=== PATIENT | female | born 1945 | race Caucasian/White ===

== ENCOUNTER 2020-10-26 16:17 | Inpatient (IN) | payer MEDICARE, OTHER ==
[~2020-10-26] VITALS: Ht 167.6 cm; Wt 121.4 kg
[2020-10-26] MEDS ORDERED: IV NORMAL SALINE 1000ML BAG 1,000 ML IV ONE ×2 (16:30→19:00)
[2020-10-26] MEDS ORDERED: IV NORMAL SALINE 500ML BAG 500 ML IV PRN (16:30)
--- NOTE | 2020-10-26 16:40 | ED.ADGEN ---
General Adult HPI: HPI: Patient is a 75-year-old female who arrives via EMS in transfer for dialysis as well as ongoing treatment for sepsis. Patient was transferred from outlying facility for direct admission to the hospital. It was reported by paramedics to the accepting doctor the patient was hypotensive and the accepting physician contacted myself and asked the patient be evaluated in the emergency department. Upon arrival it is been reported to myself the patient's blood pressure has been extremely low and the patient has been altered. I am not certain as to how long this has been ongoing. Moreover paramedics report to me the patient was transferred here specifically for dialysis however they are unaware when the patient last received dialysis. The patient is incapacitated at this time and unable to provide history. Review of Systems: Review of Systems: Unable to obtain Current Medications: Current Medications Medications (Trade) Dose Ordered Sig/Bennie Start Time Stop Time Status Last Admin Dose Admin Dobutamine HCl/ Dextrose 250 ml @ 0 mls/hr CONT PRN 10/26/20 16:30 Norepinephrine Bitartrate 8 mg/ Dextrose 258 ml @ 0 mls/hr CONT PRN 10/26/20 16:30 10/26/20 16:52 21 MLS/HR Ondansetron HCl (Zofran) 4 mg PRN Q8HRS PRN 10/26/20 17:30 10/27/20 17:29 Piperacillin Sod/ Tazobactam Sod (Zosyn Per Pharmacy) 1 each PRN DAILY PRN 10/26/20 18:30 UNV Sodium Chloride 1,000 ml @ 1,000 mls/hr 1X ONCE 10/26/20 16:30 10/26/20 17:29 DC 10/26/20 16:43 1,000 MLS/HR Vancomycin HCl (Vanco Per Pharmacy) 1 each PRN DAILY PRN 10/26/20 18:30 UNV Allergies: Allergies: Allergies Coded Allergies Type Severity Reaction Last Updated Verified Penicillins Allergy Intermediate 10/26/20 Yes chlorpheniramine Allergy Intermediate AKYLAMINE ANTIHISTAMINE 10/26/20 Yes ciprofloxacin Allergy Intermediate 10/26/20 Yes codeine Allergy Intermediate 10/26/20 Yes pioglitazone Allergy Intermediate 10/26/20 Yes ramipril Allergy Intermediate 10/26/20 Yes Physical Exam: PE: Constitutional: Morbidly obese, ill-appearing/toxic. Well developed, well nourished. [] HENT: Normocephalic, atraumatic, bilateral external ears normal, oropharynx moist, no oral exudates, nose normal. [] Eyes: PERRLA, EOMI, conjunctiva normal, no discharge. [] Neck: Normal range of motion, no tenderness, supple, no stridor. [] Cardiovascular:Heart rate regular rhythm, no murmur [] Lungs & Thorax: Breath sounds are diminished bilaterally. [] Abdomen: Bowel sounds normal, soft, no tenderness, no masses, no pulsatile masses. [] Skin: Warm, dry, no erythema, no rash. [] Back: No tenderness, no CVA tenderness. [] Extremities: Cool extremities. No tenderness, no cyanosis, no clubbing, ROM intact, no edema. [] Neurologic: Patient is arousable with physical prompting. She does move all 4 extremities when prompted. [] Psychologic: Unable to assess. [] Current Patient Data: Labs: Laboratory Tests Test 10/26/20 16:30 Lactic Acid Level 2.4 mmol/L (0.4-2.0) H Total Bilirubin 0.3 mg/dL (0.2-1.0) Direct Bilirubin 0.1 mg/dL (0.0-0.2) Aspartate Amino Transferase (AST) 407 U/L (15-37) H Alanine Aminotransferase (ALT) 229 U/L (14-59) H Alkaline Phosphatase 175 U/L (46-116) H Troponin I Quantitative 0.061 ng/mL (0.000-0.055) Total Protein 5.3 g/dL (6.4-8.2) L Albumin 1.7 g/dL (3.4-5.0) L Procalcitonin 1.46 ng/mL (0.00-0.10) H Vital Signs: Vital Signs Date Time Temp Pulse Resp B/P (MAP) Pulse Ox O2 Delivery O2 Flow Rate FiO2 10/26/20 17:20 60 16 99 Venturi Mask 9.0 10/26/20 17:10 91/44 (60) 10/26/20 16:17 97.4 97.4 EKG: EKG: [] EKG was obtained at 1632 hrs. and revealed a bradycardic rhythm with a ventricular rate of 58 bpm. There is left axis deviation present. 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 There are no acute ST/T wave changes present otherwise. Heart Score: C/O Chest Pain: N/A Risk Factors: Risk Factors: DM, Current or recent (<one month) smoker, HTN, HLP, family history of CAD, obesity. Risk Scores: Score 0 - 3: 2.5% MACE over next 6 weeks - Discharge Home Score 4 - 6: 20.3% MACE over next 6 weeks - Admit for Clinical Observation Score 7 - 10: 72.7% MACE over next 6 weeks - Early Invasive Strategies Radiology/Procedures: Radiology/Procedures: [] Impression: [facility] [address] [place], [place] [id number] IMAGING REPORT Signed PATIENT: EVELINE ARMSTRONG EACCOUNT: [id number] : 1945 LOCATION: ER AGE: 75 SEX: F EXAM STATUS: REG ER ORD. PHYSICIAN: ELLY CORDON DO REASON: Altered mental status PROCEDURE: CHEST AP ONLY XR CHEST 1V History: Altered mental status. Comparison: None. Technique: AP radiograph of the chest. Findings: Rotated patient positioning. Hypoinflated lungs. Bibasilar opacities. No significant pleural effusion. Cardiac silhouette is normal in size. Unremarkable pulmonary vasculature. No acute osseous abnormality identified. Soft tissues are unremarkable. Impression: 1. Hypoinflation with bibasilar opacities which may represent atelectasis. Cannot exclude superimposed infection. Electronically signed by: Yohan Denton MD (10/26/2020 5:17 PM) [facility] DICTATED and SIGNED BY: YOHAN DENTON MD DATE: 10/26/20 [id number] 0 Course & Med Decision Making: Course & Med Decision Making Pertinent Labs and Imaging studies reviewed. (See chart for details) [] Dragon Disclaimer: Viral Disclaimer: This electronic medical record was generated, in whole or in part, using a voice recognition dictation system. Departure Departure Impression: Primary Impression: Septic shock Additional Impressions: Multiorgan failure Altered mental state History of cellulitis Disposition: ADMITTED INPATIENT Admitting Physician: BHASKAR Condition: GUARDED Referrals: GARY REYNOSO DO (PCP) Date and Time of Reassessment Date: Oct 26, 2020 Time: 18:36 Fluid Challenge Is the fluid challenge complet: Yes IBW Target Volume Used: No BMI > 30: Yes Vital Signs Vital Signs: Vital Signs Date Time Temp Pulse Resp B/P (MAP) Pulse Ox O2 Delivery O2 Flow Rate FiO2 10/26/20 17:20 60 16 99 Venturi Mask 9.0 10/26/20 17:10 91/44 (60) 10/26/20 16:17 97.4 97.4 Temperature Source: Axillary Respirations Respiratory Pattern: Normal Cardiovascular Pulse Rhythm: Regular Heart: Nml rate, reg. rhythm Lung Sounds Breath Sounds: Diminished Capillary Refil Capillary Refill: Lt Hand < 3 seconds Peripheral Pulse Pulse Location: Radial Pulse Strength: Normal (2+) Pulse Assessment Method: Palpation Integumentary Skin: Warm, Dry Skin Moisture: Clammy Skin Turgor: Decreased Skin Color: warm, edema Fingernail Color: WNL Critical Care Time Critical care time was 30 minutes exclusive of procedures. Problem Qualifiers ELLY CORDON DO Oct 26, 2020 16:40
[2020-10-26] MEDS: NOREPINEPHRINE VIAL 8 MG in IV DEXTROSE 5% 250 ML IV PRN (16:52)
[2020-10-26 16:58] LABS: ALBUMIN 1.7 g/dL (3.4-5.0); DIRECT BILIRUBIN 0.1 mg/dL (0.0-0.2); TOTAL BILIRUBIN 0.3 mg/dL (0.2-1.0); TOTAL PROTEIN 5.3 g/dL (6.4-8.2)
--- NOTE | 2020-10-26 17:20 | RAD ---
XR CHEST 1V History: Altered mental status. Comparison: None. Technique: AP radiograph of the chest. Findings: Rotated patient positioning. Hypoinflated lungs. Bibasilar opacities. No significant pleural effusion . Cardiac silhouette is normal in size. Unremarkable pulmonary vasculature. No acute osseous abnormal ity identified. Soft tissues are unremarkable. Impression: 1. Hypoinflation with bibasilar opacities which may represent atelectasis. Cannot exclude superimpos ed infection. Electronically signed by: Yohan Young MD (10/26/2020 5:17 PM) [facility]
[2020-10-26] MEDS ORDERED: ONDANSETRON PF 4 MG/2 ML VIAL. IV PRN (17:30)
--- NOTE | 2020-10-26 18:28 | PDOC1 ---
History and Physical Date of Admission Date of Admission DATE: 10/26/20 TIME: 18:27 Identification/Chief Complaint Chief Complaint sepsis Source Source: Chart review, Patient History of Present Illness History of Present Illness Ms. Mae is a 75-year-old female who arrives via EMS in transfer for dialysis as well as ongoing treatment for sepsis. PT arrived hypotensive, shock, obtuneded, confused. I reviewed all notes and discussed with her at [facility]. She injured her leg 20 days ago, and refused to seek medical care thinking it would improve. She was admitted to [facility] 8 days ago, and started on clinda. Pt has CKD 4, prior HD here 8 years ago, Dr. Barraza. Transfer for sepsis , worseing renal function, cr 2.2 on admit, worse to 6.4 toady, with also increases in BUN over that time. she has surg I+D on her left leg yesterday 10/25 and 4 mm incision done to drain abcess, area is now wrapped. It was reported by paramedics to the accepting doctor the patient was hypotensive and the accepting physician contacted myself and asked the patient be evaluated in the emergency department. Upon arrival it is been reported to myself the patient's blood pressure has been extremely low and the patient has been altered. Past Medical History Cardiovascular: HTN Musculoskeletal: low back pain, Osteoarthritis Renal/: Chronic renal failure Endocrine: Diabetes Family History Family History: Coronary Artery Disease, Diabetes Social History Smoke: Quit ALCOHOL: none Drugs: None Current Medications Current Medications Current Medications Sodium Chloride 500 ml @ 1,000 mls/hr PRN Q30MIN PRN IV SEE COMMENTS; Start 10/26/20 at 16:30 Norepinephrine Bitartrate 8 mg/ Dextrose 258 ml @ 0 mls/hr CONT PRN IV SEE I/O RECORD Last administered on 10/26/20at 16:52; Start 10/26/20 at 16:30 Dobutamine HCl/ Dextrose 250 ml @ 0 mls/hr CONT PRN IV SEE I/O RECORD; Start 10/26/20 at 16:30 Sodium Chloride 1,000 ml @ 1,000 mls/hr 1X ONCE IV Last administered on 10/26/20at 16:43; Start 10/26/20 at 16:30; Stop 10/26/20 at 17:29; Status DC Ondansetron HCl (Zofran) 4 mg PRN Q8HRS PRN IV NAUSEA/VOMITING; Start 10/26/20 at 17:30; Stop 10/27/20 at 17:29 Allergies Allergies: Coded Allergies: Penicillins (Verified Allergy, Intermediate, 10/26/20) chlorpheniramine (Verified Allergy, Intermediate, AKYLAMINE ANTIHISTAMINE, 10/26/20) ciprofloxacin (Verified Allergy, Intermediate, 10/26/20) codeine (Verified Allergy, Intermediate, 10/26/20) pioglitazone (Verified Allergy, Intermediate, 10/26/20) ramipril (Verified Allergy, Intermediate, 10/26/20) ROS Review of System unable, pt obtunded, hx per , when awake she is not coherent Physical Exam Physical Exam obtunded on arrival, then yelling out when BP better General: moderate distress, severe distress, Other (confused, ) HEENT: Atraumatic Lungs: Clear to auscultation Heart: S1S2, no murmurs Abdomen: Normal bowel sounds, Soft (very obese, brusing, ) Rectal Exam: deferred Extremities: No clubbing, No cyanosis, Other (1+ edema, ) Skin: Other (left leg with wound, wrapped, with some red ness, ) Psych/Mental Status: Other (confused, deliriuous) Vitals Vitals Vital Signs Date Time Temp Pulse Resp B/P (MAP) Pulse Ox O2 Delivery O2 Flow Rate FiO2 10/26/20 17:20 60 16 99 Venturi Mask 9.0 10/26/20 17:10 91/44 (60) 10/26/20 16:17 97.4 97.4 Labs Labs Laboratory Tests Test 10/26/20 16:30 Lactic Acid Level 2.4 mmol/L (0.4-2.0) Total Bilirubin 0.3 mg/dL (0.2-1.0) Direct Bilirubin 0.1 mg/dL (0.0-0.2) Aspartate Amino Transf (AST/SGOT) 407 U/L (15-37) Alanine Aminotransferase (ALT/SGPT) 229 U/L (14-59) Alkaline Phosphatase 175 U/L (46-116) Troponin I Quantitative 0.061 ng/mL (0.000-0.055) Total Protein 5.3 g/dL (6.4-8.2) Albumin 1.7 g/dL (3.4-5.0) Procalcitonin 1.46 ng/mL (0.00-0.10) Laboratory Tests Test 10/26/20 16:30 Lactic Acid Level 2.4 mmol/L (0.4-2.0) Total Bilirubin 0.3 mg/dL (0.2-1.0) Direct Bilirubin 0.1 mg/dL (0.0-0.2) Aspartate Amino Transf (AST/SGOT) 407 U/L (15-37) Alanine Aminotransferase (ALT/SGPT) 229 U/L (14-59) Alkaline Phosphatase 175 U/L (46-116) Troponin I Quantitative 0.061 ng/mL (0.000-0.055) Total Protein 5.3 g/dL (6.4-8.2) Albumin 1.7 g/dL (3.4-5.0) Procalcitonin 1.46 ng/mL (0.00-0.10) VTE Prophylaxis Ordered VTE Prophylaxis Devices: No VTE Pharmacological Prophylaxi: Yes Assessment/Plan Assessment/Plan sepsis, septic shock, IV fluid and dopamine given in route, change to levaphed, fluid given sepsis, cellulitis, Vanc,zosyn ordere acute renal failure, vasomotor on CKD 4, consult renal, hx of prior dialysis yearss ago obese, BMI 40 dm2 neuropathy feet, poor sensation acute transaminitis from sepsis Justifications for Admission Other Justification ISHAN ADLER MD Oct 26, 2020 18:27
[2020-10-26] MEDS ORDERED: PIP/TAZO PER PHARMACY MC PRN (18:30)
[2020-10-26] MEDS ORDERED: VANCOMYCIN 2 GM in IV NORMAL SALINE 500ML BAG 500 ML IV ONE (19:00)
[2020-10-26 19:13] LABS: ISTAT BE VENOUS -16 mmol/L (0-3); ISTAT HCO3 VEN 14 mmol/L (24-28); ISTAT PCO2 VEN 49 mmHg (41-51); ISTAT PH VEN 7.07 (7.32-7.42); ISTAT PO2 VEN 226 mmHg (20-40); ISTAT SAT O2 VEN 99 %; ISTAT TCO2 VEN 16 mmol/L (21-32)
[2020-10-26 19:55] LABS: BASO # 0.1 x10^3/uL (0.0-0.2); BASO % 1 % (0-3); EOS # 0.2 x10^3/uL (0.0-0.7); EOS % 1 % (0-3); HEMATOCRIT 26.7 % (36.0-47.0); HEMOGLOBIN 8.5 g/dL (12.0-15.5); LYMPH # 0.5 x10^3/uL (1.0-4.8); LYMPH % 3 % (24-48); MEAN CORPUSCULAR HEMOGLOBIN 31 pg (25-35); MEAN CORPUSCULAR HGB CONC 32 g/dL (31-37); MEAN CORPUSCULAR VOLUME 96 fL (79-100); MONO # 0.7 x10^3/uL (0.0-1.1); MONO % 3 % (0-9); NEUT # 18.7 x10^3/uL (1.8-7.7); NEUT % 92 % (31-73); PLATELET COUNT 270 x10^3/uL (140-400); RED CELL DISTRIBUTION WIDTH 14.2 % (11.5-14.5); WHITE BLOOD COUNT 20.2 x10^3/uL (4.0-11.0)
[2020-10-26 19:56] LABS: BASE EXCESS ABG -18 mmol/L (-3-3); HCO3 ABG 11 mmol/L (21-28); PCO2 ABG 36 mmHg (35-46); PO2 ABG 94 mmHg (65-108); SAT O2 ABG 95 % (92-99)
[2020-10-26 19:57] LABS: CALCIUM 7.3 mg/dL (8.5-10.1); CREATININE 6.5 mg/dL (0.6-1.0); GFR 6.2; POTASSIUM 5.6 mmol/L (3.5-5.1)
[2020-10-26 20:20] LABS: % BANDS 43 % (0-9); % EOS 1 % (0-5); % LYMPHS 3 % (24-48); % METAS 1 % (0-0); % MONOS 6 % (0-10); % SEGS 46 % (35-66); PLT ESTIMATE ADEQUATE (ADEQUATE)
[2020-10-26 20:21] LABS: POIKILOCYTOSIS MARKED
[2020-10-26 20:23] LABS: BURR CELLS MANY; SCHISTOCYTES OCC
[2020-10-26 20:30] VITALS: BP 113/98
[2020-10-26] MEDS: HEPARIN for SUB-Q USE 5,000 UNIT/ML VIAL. SQ SCH (21:19)
[2020-10-26] MEDS: VANCOMYCIN PER PHARMACY MC PRN (21:36)
--- NOTE | 2020-10-26 21:36 | NUR ---
Pharmacy Vancomycin Dosing Note S:Consulted to monitor and dose vancomycin started 10/26/20. O:EVELINE ARMSTRONG is a 75 year old F with Abscess Cellulitis . Height: 5 feet, 6 inches Weight: 112.0 kg Whipple Body Weight: 59.30 Adjusted Body Weight: 80.38 Dosing Weight: Other Antibiotics: Aztreonam 500mg IVPB q12hrs LABS: Last BUN: Last Creatinine: 6.5 Creatinine Clearance: 9.5 mL/min Last WBC: 20.2 Last Procalcitonin: Tmax (past 24 hours): 97.4 Microbiology: I/O: Drug Levels: Last level: on at Last dose given 10/26/20 at 1912 Vancomycin Dosing: Loading Dose: 2000 mg x1 Dosing Weight: Target Trough: 10-20 A: Based on weight and SrCr: P: 1. Vancomycin 2000mg bolus and wait for random level results. 2. Follow up Random level on 10/28/20 at 0600. 3. Pharmacy will continue to monitor, follow and adjust therapy as needed. Joshua Mack [facility], 10/26/20 1960
--- NOTE | 2020-10-26 21:56 | NUR ---
Pt admitted to room 112 from ED. Monitors applied. Unable to get BP at multiple locations, notified Dr. Berger. Also, notified Dr. Berger of lab results of BUN/CRE of 86/6.5, no additional orders at this time. Spoke with Jose Miguel and updated on condition. Verified with pt is a full code at this time.
[2020-10-26] MEDS: AZTREONAM IV Push 1 GM VIAL. IVP SCH (22:12)
[2020-10-26 22:24] VITALS: BP 94/74
[2020-10-26] MEDS: IV NORMAL SALINE 1000ML BAG 1,000 ML IV SCH (23:18)
[2020-10-26] MEDS ORDERED: ATOR80TA72 PO (23:56)
[2020-10-26] MEDS ORDERED: ICOS1CAP PO (23:56)
[2020-10-26] MEDS ORDERED: INSU100I13 SQ ×2 (23:56)
[2020-10-26] MEDS ORDERED: SITA100T PO (23:56)
[2020-10-26] MEDS ORDERED: ASPI-630 PO (23:56)
[2020-10-26] MEDS ORDERED: DULA1.5P SQ (23:56)
[2020-10-26] MEDS ORDERED: FOLI0.8T5 PO (23:56)
[2020-10-26] MEDS ORDERED: FEBU40TA3 PO (23:56)
[2020-10-26] MEDS ORDERED: THYR60TA PO (23:56)
[2020-10-26] MEDS ORDERED: ALBU2.5V5 NEB (23:56)
[2020-10-27] VITALS (31 sets, daily range): BP systolic 56–158; BP diastolic 0–65
[2020-10-27] MEDS ORDERED: LUTE1CAP5 PO (00:03)
[2020-10-27] MEDS ORDERED: DOCU-109 PO (00:03)
[2020-10-27] MEDS ORDERED: FLAX10003 PO (00:03)
[2020-10-27] MEDS ORDERED: HYDR200T5 PO (00:03)
[2020-10-27] MEDS ORDERED: PROP10TA PO (00:03)
[2020-10-27] MEDS ORDERED: BISA-42 PO (00:03)
[2020-10-27] MEDS ORDERED: NYST15PO9 TP (00:03)
[2020-10-27] MEDS: NOREPINEPHRINE VIAL 8 MG in IV DEXTROSE 5% 250 ML IV PRN ×2 (00:35→06:29)
[2020-10-27] MEDS ORDERED: IV NORMAL SALINE 1000ML BAG 1,000 ML IV ONE (01:00)
--- NOTE | 2020-10-27 04:34 | NUR ---
At 01:30, notified Dr. Berger still unable to obtain BP. Received order for anesthesia to place arterial line for BP monitoring. Anesthesia attempted several times but unsuccessful. Increased Levophed but still not able to get BP.
[2020-10-27] MEDS: IV NORMAL SALINE 1000ML BAG 1,000 ML IV SCH ×3 (05:22→19:38)
[2020-10-27] MEDS ORDERED: C.DIFF MED SCREEN BY RX. MC ONE (05:45)
--- NOTE | 2020-10-27 06:41 | NUR ---
Notified Dr. Berger of current status: increased oxygen to 15l/NRB, lung sounds are now coarse, patient's breathing appears to be more labored, no urine output, SIDE LASTER TACK unable to place arterial line and still are not able to get BP. Checking BP via doppler. Received orders to begin solucortef and IR to place art line
[2020-10-27] MEDS ORDERED: MAGNESIUM SULFATE 2GM 50 ML IV ONE (07:30)
[2020-10-27] MEDS ORDERED: MIDAZOLAM 100mg/100ml NS BAG 100 ML IV PRN (07:30)
[2020-10-27] MEDS ORDERED: SODIUM BICARB ADULT 8.4% 50 MEQ/50 ML DISP.SYRIN. ONE ×3 (07:36→12:00)
[2020-10-27] MEDS ORDERED: IPRATRPIUM/ALBUTEROL 0.5/2.5MG 3 ML NEBU. ONE (07:37)
[2020-10-27] MEDS ORDERED: AMIODARONE 150 MG in IV DEXTROSE 5% 100ML 100 ML IV ONE (07:45)
[2020-10-27] MEDS ORDERED: AMIODARONE 450 MG in IV DEXTROSE 5% 250 ML IV ONE (08:00)
[2020-10-27] MEDS ORDERED: INSULIN LISPRO 100 UNIT/ML 3ML VIAL for OP,RR ONLY. SQ ONE (08:00)
[2020-10-27 08:44] LABS: BASO % 0 % (0-3); EOS % 0 % (0-3); HEMATOCRIT 24.5 % (36.0-47.0); LYMPH # 1.6 x10^3/uL (1.0-4.8); LYMPH % 12 % (24-48); MEAN CORPUSCULAR HEMOGLOBIN 30 pg (25-35); MEAN CORPUSCULAR HGB CONC 27 g/dL (31-37); MONO # 0.7 x10^3/uL (0.0-1.1); MONO % 6 % (0-9); NEUT # 10.5 x10^3/uL (1.8-7.7); NEUT % 82 % (31-73); PLATELET COUNT 172 x10^3/uL (140-400); RED BLOOD COUNT 2.24 x10^6/uL (3.50-5.40); RED CELL DISTRIBUTION WIDTH 15.5 % (11.5-14.5); WHITE BLOOD COUNT 12.8 x10^3/uL (4.0-11.0)
[2020-10-27 08:52] LABS: HEMOGLOBIN 6.7 g/dL (12.0-15.5)
[2020-10-27 08:53] LABS: MEAN CORPUSCULAR VOLUME 107 fL (79-100)
[2020-10-27 08:57] LABS: ALBUMIN 1.3 g/dL (3.4-5.0); ALBUMIN/GLOBULIN RATIO 0.5 (1.0-1.7); CALCIUM 8.4 mg/dL (8.5-10.1); CREATININE 6.5 mg/dL (0.6-1.0); GFR 6.2; MAGNESIUM 3.6 mg/dL (1.8-2.4); TOTAL BILIRUBIN 0.3 mg/dL (0.2-1.0); TOTAL PROTEIN 3.7 g/dL (6.4-8.2)
[2020-10-27 09:02] LABS: POTASSIUM 6.1 mmol/L (3.5-5.1)
[2020-10-27] MEDS ORDERED: fentaNYL PF VIAL 100 MCG/2 ML VIAL ONE (09:03)
[2020-10-27 09:20] LABS: PHOSPHORUS 17.5 mg/dL (2.6-4.7)
[2020-10-27] MEDS ORDERED: ALBUMIN HUMAN 25% 200 ML IV PRN (09:30)
[2020-10-27] MEDS ORDERED: IV NORMAL SALINE 1000ML BAG 1,000 ML IV PRN ×2 (09:30)
[2020-10-27 09:39] LABS: BASE EXCESS COOX -22 mmol/L (-3-3); HCO3 COOX 9 mmol/L (21-28); METHEMOGLOBIN 0.6 % (0.0-1.9); OXYHEMOGLOBIN 98.4 %; PCO2 COOX 37 mmHg (35-46); PO2 COOX 311 mmHg (65-108); SAT O2 COOX 99 % (92-99)
--- NOTE | 2020-10-27 09:46 | RAD ---
EXAM: Chest, single view. HISTORY: Endotracheal tube placement. COMPARISON: 10/26/2020 FINDINGS: A frontal view of the chest is obtained. There is an endotracheal tube within the mid to di stal trachea. There is a nasogastric tube within the stomach. There are right internal jugular cathet ers within the superior cavoatrial junction and right atrium. There is bilateral lower lobe predomina nt interstitial infiltrate or atelectasis. No consolidation or pleural effusion is seen. The heart is normal in size. IMPRESSION: 1. Stable suspected bilateral lower lobe interstitial infiltrate or atelectasis. 2. Support lines and tubes, described above. Electronically signed by: Jazzmine Power MD (10/27/2020 9:44 AM) [id number]
--- NOTE | 2020-10-27 09:49 | CARD ---
MR#: [id number] Date of Study: 10/27/2020 Ordering Physician: TANVIR JEFFREY, Referring Physician: TANVIR JEFFREY Tech: Billie Davis DIRK APPROVED REPORT EXAM: Two-dimensional and M-mode echocardiogram with Doppler and color Doppler. Other Information Quality : Fair INDICATION Cardiac Arrest 2D DIMENSIONS RVDd3.2 (2.9-3.5cm)Left Atrium(2D)3.6 (1.6-4.0cm) IVSd1.6 (0.7-1.1cm)Aortic Root(2D)2.9 (2.0-3.7cm) LVDd3.4 (3.9-5.9cm)PWd1.5 (0.7-1.1cm) LVDs2.4 (2.5-4.0cm)FS (%) 28.7 % SV26.4 mlLVEF(%)56.5 (>50%) LEFT VENTRICLE The left ventricle is normal size. There is moderate concentric left ventricular hypertrophy. The lef t ventricular systolic function is normal. The Ejection Fraction is 55%. Septal motion consistent wit h conduction abnormality. MITRAL VALVE The mitral valve is calcified but opens well. Mitral annular calcification is mild. GREAT VESSELS The aortic root is normal in size. The IVC was not visualized. PERICARDIAL EFFUSION There is no evidence of significant pericardial effusion. Critical Notification Critical Value: No <Conclusion> Limited echo to evaluate LV function. The left ventricular systolic function is normal. The Ejection Fraction is 55%. Septal motion consistent with conduction abnormality. There is no evidence of significant pericardial effusion. Signed by : David Marcum, Electronically Approved : 10/27/2020 09:48:43
[2020-10-27] MEDS: NOREPINEPHRINE VIAL 32 MG in IV DEXTROSE 5% 218 ML IV PRN ×2 (10:00→17:39)
[2020-10-27] MEDS: VASOPRESSIN 20 UNIT in IV DEXTROSE 5% 100ML 100 ML IV PRN ×2 (10:00→15:52)
--- NOTE | 2020-10-27 10:00 | PDOC2 ---
TANVIR JEFFREY [employer] 10/27/20 1000: CARDIAC CONSULT DATE OF CONSULT Date of Consult DATE: 10/27/20 TIME: 0840 REASON FOR CONSULT Reason for Consult: Shock REFERRING PHYSICIAN Referring Physician: Ab SOURCE Source: Chart review HISTORY OF PRESENT ILLNESS HISTORY OF PRESENT ILLNESS This is a 75 yo female admitted for renal failure and sepsis. She was initially at an [facility] facility and transferred to [facility] for further treatment. Upon admission she was noted with severe YUE with hyperkalemia and severe metabolic acidosis. No known hx of CAD but has hx of COPD and DM2. This morning around 7AM she had cardiac arrest. She coded for 7 min before ROSC and then few minutes later she coded again for 16 minutes before ROSC. During those times she displayed several arrhythmias including VT, Vfib, asytole, PEA and her underlying rhythm post ROSC was sinus tachycardia and bradycardia on the second code. She then had significant bradycardia and eventually placed on TCP and eventually was intubated. She received multiple rounds of treatment per ACLS protocol. No BP could be obtained but she has a dopplerable femoral pulse and palpable brachial pulses bilaterally. She is mottled throughout and has generalized bruising and petechiae. Apparently she had a significant left ankle injury and had sutures from few days ago. She has levophed going and added vasopressin. She is also on amiodarone. PAST MEDICAL HISTORY Cardiovascular: HTN, Hyperlipidemia Pulmonary: COPD Hepatobiliary: Cholelithiasis Renal/: Chronic renal insuff Endocrine: Diabetes, Hyperthyroidism PAST SURGICAL HISTORY Past Surgical History: Appendectomy, Cholecystectomy FAMILY HISTORY Family History: Family History Unknown SOCIAL HISTORY Smoke: <1 pack per day ALCOHOL: none Lives: with Family CURRENT MEDICATIONS CURRENT MEDICATIONS Current Medications Medications (Trade) Dose Ordered Sig/Bennie Route PRN Reason Start Time Stop Time Status Last Admin Dose Admin Norepinephrine Bitartrate 8 mg/ Dextrose 258 ml @ 0 mls/hr CONT PRN IV SEE I/O RECORD 10/26/20 16:30 10/27/20 09:19 DC 10/27/20 06:29 Sodium Chloride 1,000 ml @ 1,000 mls/hr 1X ONCE IV 10/26/20 16:30 10/26/20 17:29 DC 10/26/20 16:43 Vancomycin HCl (Vanco Per Pharmacy) 1 each PRN DAILY PRN MC SEE COMMENTS 10/26/20 18:30 10/26/20 21:36 Sodium Chloride 1,000 ml @ 1,000 mls/hr 1X ONCE IV 10/26/20 19:00 10/26/20 19:59 DC 10/26/20 20:02 Vancomycin HCl 2 gm/Sodium Chloride 500 ml @ 250 mls/hr 1X ONCE IV 10/26/20 19:00 10/26/20 20:59 DC 10/26/20 19:12 Heparin Sodium (Porcine) (Heparin Sodium) 5,000 unit BID SQ 10/26/20 20:00 10/26/20 21:19 Aztreonam (Azactam) 0.5 gm Q12HR IVP 10/26/20 21:00 10/26/20 22:12 Sodium Chloride 1,000 ml @ 150 mls/hr Q6H40M IV 10/26/20 23:15 10/26/20 23:18 Sodium Chloride 1,000 ml @ 1,000 mls/hr 1X ONCE IV 10/27/20 01:00 10/27/20 01:59 DC 10/27/20 00:56 ALLERGIES ALLERGIES: Coded Allergies: Penicillins (Verified Allergy, Intermediate, inj site swelling as child, 10/27/20) Tolerates Rocephin, Merrem chlorpheniramine (Verified Allergy, Intermediate, AKYLAMINE ANTIHISTAMINE, 10/26/20) ciprofloxacin (Verified Allergy, Intermediate, 10/26/20) codeine (Verified Allergy, Intermediate, 10/26/20) pioglitazone (Verified Allergy, Intermediate, 10/26/20) ramipril (Verified Allergy, Intermediate, 10/26/20) ROS Review of System unreliable PHYSICAL EXAM General: Other (unresponsive) HEENT: Atraumatic Lungs: Other (intaubed with vent) Abdomen: Other (obese) Extremities: Other (1+ bilateral LE pitting edema) Skin: Other (generalized bruising with petechiae. Left lateral ankle incision with sutures) Psych/Mental Status: Other (unresponsive) MUSCULOSKELETAL: Osteoarthritic changes both hands VITALS/I&O VITALS/I&O: Vital Signs Date Time Temp Pulse Resp B/P (MAP) Pulse Ox O2 Delivery O2 Flow Rate FiO2 10/27/20 09:00 63 20 151/44 (79) 100 Ventilator 10/27/20 07:00 15.0 10/27/20 04:00 97.1 97.1 I & O 10/26/20 10/26/20 10/27/20 15:00 23:00 07:00 Intake Total 3300 ml 1377.8 ml Output Total 0 ml 0 ml Balance 3300 ml 1377.8 ml LABS Lab: Laboratory Tests Test 10/26/20 16:30 10/26/20 18:09 10/26/20 19:51 10/26/20 20:00 White Blood Count 20.2 x10^3/uL (4.0-11.0) H Red Blood Count 2.80 x10^6/uL (3.50-5.40) L Hemoglobin 8.5 g/dL (12.0-15.5) L Hematocrit 26.7 % (36.0-47.0) L Mean Corpuscular Volume 96 fL (79-100) Mean Corpuscular Hemoglobin 31 pg (25-35) Mean Corpuscular Hemoglobin Concent 32 g/dL (31-37) Red Cell Distribution Width 14.2 % (11.5-14.5) Platelet Count 270 x10^3/uL (140-400) Neutrophils (%) (Auto) 92 % (31-73) H Lymphocytes (%) (Auto) 3 % (24-48) L Monocytes (%) (Auto) 3 % (0-9) Eosinophils (%) (Auto) 1 % (0-3) Basophils (%) (Auto) 1 % (0-3) Neutrophils # (Auto) 18.7 x10^3/uL (1.8-7.7) H Lymphocytes # (Auto) 0.5 x10^3/uL (1.0-4.8) L Monocytes # (Auto) 0.7 x10^3/uL (0.0-1.1) Eosinophils # (Auto) 0.2 x10^3/uL (0.0-0.7) Basophils # (Auto) 0.1 x10^3/uL (0.0-0.2) Segmented Neutrophils % 46 % (35-66) Band Neutrophils % 43 % (0-9) H Lymphocytes % 3 % (24-48) L Monocytes % 6 % (0-10) Eosinophils % 1 % (0-5) Metamyelocytes % 1 % (0-0) H Platelet Estimate Adequate (ADEQUATE) Poikilocytosis Marked Brissa Cells Many Schistocytes Occ Sodium Level 138 mmol/L (136-145) Potassium Level 5.6 mmol/L (3.5-5.1) H Chloride Level 103 mmol/L (98-107) Carbon Dioxide Level 18 mmol/L (21-32) L Anion Gap 17 (6-14) H Blood Urea Nitrogen 86 mg/dL (7-20) H Creatinine 6.5 mg/dL (0.6-1.0) H Estimated GFR (Cockcroft-Gault) 6.2 Glucose Level 121 mg/dL (70-99) H Lactic Acid Level 2.4 mmol/L (0.4-2.0) H 1.6 mmol/L (0.4-2.0) Calcium Level 7.3 mg/dL (8.5-10.1) L Total Bilirubin 0.3 mg/dL (0.2-1.0) Direct Bilirubin 0.1 mg/dL (0.0-0.2) Aspartate Amino Transferase (AST) 407 U/L (15-37) H Alanine Aminotransferase (ALT) 229 U/L (14-59) H Alkaline Phosphatase 175 U/L (46-116) H Troponin I Quantitative 0.061 ng/mL (0.000-0.055) Total Protein 5.3 g/dL (6.4-8.2) L Albumin 1.7 g/dL (3.4-5.0) L Procalcitonin 1.46 ng/mL (0.00-0.10) H POC Venous pH 7.07 (7.32-7.42) L POC Venous pCO2 49 mmHg (41-51) POC Venous pO2 226 mmHg (20-40) H Venous Blood HCO3 14 mmol/L (24-28) L POC Venous O2 Saturation (Thierno) 99 % POC FiO2 21.0 Creatine Kinase 438 U/L (26-192) H O2 Saturation 95 % (92-99) Arterial Blood pH 7.08 (7.35-7.45) *L Arterial Blood pCO2 at Patient Temp 36 mmHg (35-46) Arterial Blood pO2 at Patient Temp 94 mmHg (65-108) Arterial Blood HCO3 11 mmol/L (21-28) L Arterial Blood Base Excess -18 mmol/L (-3-3) L FiO2 40% venti mask Test 10/27/20 05:19 10/27/20 07:25 10/27/20 07:32 10/27/20 08:20 Glucose (Fingerstick) 176 mg/dL (70-99) H 173 mg/dL (70-99) H O2 Saturation 99 % (92-99) Arterial Blood pH 6.98 (7.35-7.45) *L Arterial Blood pCO2 at Patient Temp 37 mmHg (35-46) Arterial Blood pO2 at Patient Temp 311 mmHg (65-108) H Arterial Blood HCO3 9 mmol/L (21-28) L Arterial Blood Base Excess -22 mmol/L (-3-3) L Oxyhemoglobin 98.4 % Methemoglobin 0.6 % (0.0-1.9) Carbon Monoxide, Quantitative 0.3 % (0.0-1.9) FiO2 100/vent White Blood Count 12.8 x10^3/uL (4.0-11.0) H Red Blood Count 2.24 x10^6/uL (3.50-5.40) L Hemoglobin 6.7 g/dL (12.0-15.5) *L Hematocrit 24.5 % (36.0-47.0) L Mean Corpuscular Volume 107 fL (79-100) #H Mean Corpuscular Hemoglobin 30 pg (25-35) Mean Corpuscular Hemoglobin Concent 27 g/dL (31-37) L Red Cell Distribution Width 15.5 % (11.5-14.5) H Platelet Count 172 x10^3/uL (140-400) Neutrophils (%) (Auto) 82 % (31-73) H Lymphocytes (%) (Auto) 12 % (24-48) L Monocytes (%) (Auto) 6 % (0-9) Eosinophils (%) (Auto) 0 % (0-3) Basophils (%) (Auto) 0 % (0-3) Neutrophils # (Auto) 10.5 x10^3/uL (1.8-7.7) H Lymphocytes # (Auto) 1.6 x10^3/uL (1.0-4.8) Monocytes # (Auto) 0.7 x10^3/uL (0.0-1.1) Eosinophils # (Auto) 0.0 x10^3/uL (0.0-0.7) Basophils # (Auto) 0.0 x10^3/uL (0.0-0.2) Sodium Level 142 mmol/L (136-145) Potassium Level 6.1 mmol/L (3.5-5.1) *H Chloride Level 105 mmol/L (98-107) Carbon Dioxide Level 15 mmol/L (21-32) L Anion Gap 22 (6-14) H Blood Urea Nitrogen 92 mg/dL (7-20) H Creatinine 6.5 mg/dL (0.6-1.0) H Estimated GFR (Cockcroft-Gault) 6.2 BUN/Creatinine Ratio 14 (6-20) Glucose Level 292 mg/dL (70-99) H Calcium Level 8.4 mg/dL (8.5-10.1) L Phosphorus Level 17.5 mg/dL (2.6-4.7) H Magnesium Level 3.6 mg/dL (1.8-2.4) H Total Bilirubin 0.3 mg/dL (0.2-1.0) Aspartate Amino Transferase (AST) 1088 U/L (15-37) H Alanine Aminotransferase (ALT) 489 U/L (14-59) H Alkaline Phosphatase 180 U/L (46-116) H Total Protein 3.7 g/dL (6.4-8.2) L Albumin 1.3 g/dL (3.4-5.0) L Albumin/Globulin Ratio 0.5 (1.0-1.7) L Laboratory Tests 10/26/20 16:30 10/27/20 08:20 Laboratory Tests 10/26/20 16:30 10/27/20 08:20 ASSESSMENT/PLAN ASSESSMENT/PLAN 1. Cardiopulmonary arrest: Suspect due to severe metabolic issues and sepsis. initial code at 7 min to ROSC sinus tach and followed later with 16 min to ROSC SB post 30s and TCP placed. During those times she had multiple severe abnormal rhythms including VT, VFIB, PEA, and asystole and severe bradycardia and heart block. 2. Severe YUE on CKD with hyperkalemia 3. Severe metabolic acidosis 4. Severe sepsis/shock 5. Shock liver 6. Anemia 7. Hx of HTN, DM2, HLP and COPD 8. Recent surgical repair to left ankle with incision and sutures: Recent covid- 19 check neg reported per staff at [facility] Recommendations 1. Continue levophed and add vasopressin. Continue amiodarone and TCP for now. Will obtain art line and central venous access. 2. Troponin, DIC panel, EKG, CMP, CBC, TTE. 3. Antibiotics ongoing, consult ID 4. Will need HD, consult nephrology and pulmonary 5. Discuss case with primary commercial roofer OWEN MAGALLANES MD 10/27/20 1511: CARDIAC CONSULT ASSESSMENT/PLAN ASSESSMENT/PLAN Patient seen and examined. Agree with above nurse practitioner note. 75 woman presenting with septic shock. Echocardiogram demonstrates mild LV dysfunction but no clear cardiovascular pathology noted. Agree with initiation of hemodialysis. Her heart rhythm appears to have stabilized after correction of her electrolytes. Currently in sinus rhythm without any acute ST-T wave changes. Minimal troponin elevation. No acute indication for cardiac catheterization or pacemaker placement. Supportive care. TANVIR JEFFREY APRN Oct 27, 2020 10:00 OWEN MAGALLANES MD Oct 27, 2020 15:11
[2020-10-27] MEDS ORDERED: DIALYSIS PATIENT. MC PRN ×2 (10:30)
[2020-10-27 10:33] LABS: BASO # 0.1 x10^3/uL (0.0-0.2); BASO % 1 % (0-3); EOS # 0.1 x10^3/uL (0.0-0.7); EOS % 1 % (0-3); HEMATOCRIT 24.7 % (36.0-47.0); LYMPH # 0.8 x10^3/uL (1.0-4.8); LYMPH % 8 % (24-48); MEAN CORPUSCULAR HEMOGLOBIN 30 pg (25-35); MEAN CORPUSCULAR HGB CONC 32 g/dL (31-37); MONO # 0.1 x10^3/uL (0.0-1.1); MONO % 1 % (0-9); NEUT # 8.9 x10^3/uL (1.8-7.7); NEUT % 89 % (31-73); PLATELET COUNT 203 x10^3/uL (140-400); RED BLOOD COUNT 2.63 x10^6/uL (3.50-5.40)
[2020-10-27 10:35] LABS: MEAN CORPUSCULAR VOLUME 94 fL (79-100)
--- NOTE | 2020-10-27 10:38 | PDOC ---
[employer] PROGRESS NOTE Date of Service DOS: DATE: 10/27/20 TIME: 10:35 Chief Complaint Chief Complaint cardiac arrest today, asystole acute hypoxic respiratory failure, fluid overload and sepsis, sepsis, septic shock, IV fluid and dopamine given in route, change to levaphed, fluid given sepsis, cellulitis, Vanc,zosyn ordere acute renal failure, vasomotor on CKD 4, consult renal, hx of prior dialysis yearss ago obese, BMI 40 dm2 neuropathy feet, poor sensation acute transaminitis from sepsis History of Present Illness History of Present Illness I admitted severe sepsis and shock last night, unresponsive in ER, she did get better there, with fluid and change in abx, then CARDIAC arrest this AM at 7:10, asystole, CPR done, intubated, mult shocks, then return of spont circ. I have seen her 2x now this AM, Dr. Alvarado put mult lines in, she is now on CRRT Her was here, he has made her DNR, very poor prognosis, Vitals/I&O Vitals/I&O: Vital Signs Date Time Temp Pulse Resp B/P (MAP) Pulse Ox O2 Delivery O2 Flow Rate FiO2 10/27/20 10:00 70 24 144/59 (87) 100 Ventilator 10/27/20 07:00 15.0 10/27/20 04:00 97.1 97.1 I & O 10/26/20 10/26/20 10/27/20 15:00 23:00 07:00 Intake Total 3300 ml 1377.8 ml Output Total 0 ml 0 ml Balance 3300 ml 1377.8 ml Physical Exam General: moderate distress, severe distress, Other (confused, ) Abdomen: Normal bowel sounds, Soft (very obese, brusing, ) Extremities: No clubbing, No cyanosis, Other (1+ edema, ) Skin: Other (left leg with wound, wrapped, with some red ness, ) Labs Labs: Laboratory Tests Test 10/26/20 16:30 10/26/20 18:09 10/26/20 19:51 10/26/20 20:00 White Blood Count 20.2 x10^3/uL (4.0-11.0) Red Blood Count 2.80 x10^6/uL (3.50-5.40) Hemoglobin 8.5 g/dL (12.0-15.5) Hematocrit 26.7 % (36.0-47.0) Mean Corpuscular Volume 96 fL (79-100) Mean Corpuscular Hemoglobin 31 pg (25-35) Mean Corpuscular Hemoglobin Concent 32 g/dL (31-37) Red Cell Distribution Width 14.2 % (11.5-14.5) Platelet Count 270 x10^3/uL (140-400) Neutrophils (%) (Auto) 92 % (31-73) Lymphocytes (%) (Auto) 3 % (24-48) Monocytes (%) (Auto) 3 % (0-9) Eosinophils (%) (Auto) 1 % (0-3) Basophils (%) (Auto) 1 % (0-3) Neutrophils # (Auto) 18.7 x10^3/uL (1.8-7.7) Lymphocytes # (Auto) 0.5 x10^3/uL (1.0-4.8) Monocytes # (Auto) 0.7 x10^3/uL (0.0-1.1) Eosinophils # (Auto) 0.2 x10^3/uL (0.0-0.7) Basophils # (Auto) 0.1 x10^3/uL (0.0-0.2) Segmented Neutrophils % 46 % (35-66) Band Neutrophils % 43 % (0-9) Lymphocytes % 3 % (24-48) Monocytes % 6 % (0-10) Eosinophils % 1 % (0-5) Metamyelocytes % 1 % (0-0) Platelet Estimate Adequate (ADEQUATE) Poikilocytosis Marked [place] Cells Many Schistocytes Occ Sodium Level 138 mmol/L (136-145) Potassium Level 5.6 mmol/L (3.5-5.1) Chloride Level 103 mmol/L (98-107) Carbon Dioxide Level 18 mmol/L (21-32) Anion Gap 17 (6-14) Blood Urea Nitrogen 86 mg/dL (7-20) Creatinine 6.5 mg/dL (0.6-1.0) Estimated GFR (Cockcroft-Gault) 6.2 Glucose Level 121 mg/dL (70-99) Lactic Acid Level 2.4 mmol/L (0.4-2.0) 1.6 mmol/L (0.4-2.0) Calcium Level 7.3 mg/dL (8.5-10.1) Total Bilirubin 0.3 mg/dL (0.2-1.0) Direct Bilirubin 0.1 mg/dL (0.0-0.2) Aspartate Amino Transf (AST/SGOT) 407 U/L (15-37) Alanine Aminotransferase (ALT/SGPT) 229 U/L (14-59) Alkaline Phosphatase 175 U/L (46-116) Troponin I Quantitative 0.061 ng/mL (0.000-0.055) Total Protein 5.3 g/dL (6.4-8.2) Albumin 1.7 g/dL (3.4-5.0) Procalcitonin 1.46 ng/mL (0.00-0.10) Bedside Venous pH 7.07 (7.32-7.42) Bedside Venous pCO2 49 mmHg (41-51) Bedside Venous pO2 226 mmHg (20-40) Venous Blood HCO3 14 mmol/L (24-28) POC Venous O2 Saturation (Thierno) 99 % Bedside FiO2 21.0 Creatine Kinase 438 U/L (26-192) O2 Saturation 95 % (92-99) Arterial Blood pH 7.08 (7.35-7.45) Arterial Blood pCO2 at Patient Temp 36 mmHg (35-46) Arterial Blood pO2 at Patient Temp 94 mmHg (65-108) Arterial Blood HCO3 11 mmol/L (21-28) Arterial Blood Base Excess -18 mmol/L (-3-3) FiO2 40% venti mask Test 10/27/20 05:19 10/27/20 07:25 10/27/20 07:32 10/27/20 08:20 Glucose (Fingerstick) 176 mg/dL (70-99) 173 mg/dL (70-99) O2 Saturation 99 % (92-99) Arterial Blood pH 6.98 (7.35-7.45) Arterial Blood pCO2 at Patient Temp 37 mmHg (35-46) Arterial Blood pO2 at Patient Temp 311 mmHg (65-108) Arterial Blood HCO3 9 mmol/L (21-28) Arterial Blood Base Excess -22 mmol/L (-3-3) Oxyhemoglobin 98.4 % Methemoglobin 0.6 % (0.0-1.9) Carbon Monoxide, Quantitative 0.3 % (0.0-1.9) FiO2 100/vent White Blood Count 12.8 x10^3/uL (4.0-11.0) Red Blood Count 2.24 x10^6/uL (3.50-5.40) Hemoglobin 6.7 g/dL (12.0-15.5) Hematocrit 24.5 % (36.0-47.0) Mean Corpuscular Volume 107 fL (79-100) Mean Corpuscular Hemoglobin 30 pg (25-35) Mean Corpuscular Hemoglobin Concent 27 g/dL (31-37) Red Cell Distribution Width 15.5 % (11.5-14.5) Platelet Count 172 x10^3/uL (140-400) Neutrophils (%) (Auto) 82 % (31-73) Lymphocytes (%) (Auto) 12 % (24-48) Monocytes (%) (Auto) 6 % (0-9) Eosinophils (%) (Auto) 0 % (0-3) Basophils (%) (Auto) 0 % (0-3) Neutrophils # (Auto) 10.5 x10^3/uL (1.8-7.7) Lymphocytes # (Auto) 1.6 x10^3/uL (1.0-4.8) Monocytes # (Auto) 0.7 x10^3/uL (0.0-1.1) Eosinophils # (Auto) 0.0 x10^3/uL (0.0-0.7) Basophils # (Auto) 0.0 x10^3/uL (0.0-0.2) Sodium Level 142 mmol/L (136-145) Potassium Level 6.1 mmol/L (3.5-5.1) Chloride Level 105 mmol/L (98-107) Carbon Dioxide Level 15 mmol/L (21-32) Anion Gap 22 (6-14) Blood Urea Nitrogen 92 mg/dL (7-20) Creatinine 6.5 mg/dL (0.6-1.0) Estimated GFR (Cockcroft-Gault) 6.2 BUN/Creatinine Ratio 14 (6-20) Glucose Level 292 mg/dL (70-99) Calcium Level 8.4 mg/dL (8.5-10.1) Phosphorus Level 17.5 mg/dL (2.6-4.7) Magnesium Level 3.6 mg/dL (1.8-2.4) Total Bilirubin 0.3 mg/dL (0.2-1.0) Aspartate Amino Transf (AST/SGOT) 1088 U/L (15-37) Alanine Aminotransferase (ALT/SGPT) 489 U/L (14-59) Alkaline Phosphatase 180 U/L (46-116) Total Protein 3.7 g/dL (6.4-8.2) Albumin 1.3 g/dL (3.4-5.0) Albumin/Globulin Ratio 0.5 (1.0-1.7) Assessment and Plan Assessmemt and Plan Problems Medical Problems: (1) Altered mental state Status: Acute (2) History of cellulitis Status: Acute (3) Multiorgan failure Status: Acute (4) Septic shock Status: Acute Comment Review of Relevant I have reviewed the following items israel (where applicable) has been applied. Medications: Current Medications Medications (Trade) Dose Ordered Sig/Bennie Route PRN Reason Start Time Stop Time Status Last Admin Dose Admin Norepinephrine Bitartrate 8 mg/ Dextrose 258 ml @ 0 mls/hr CONT PRN IV SEE I/O RECORD 10/26/20 16:30 10/27/20 09:19 DC 10/27/20 06:29 Sodium Chloride 1,000 ml @ 1,000 mls/hr 1X ONCE IV 10/26/20 16:30 10/26/20 17:29 DC 10/26/20 16:43 Vancomycin HCl (Vanco Per Pharmacy) 1 each PRN DAILY PRN SEE COMMENTS 10/26/20 18:30 10/26/20 21:36 Sodium Chloride 1,000 ml @ 1,000 mls/hr 1X ONCE IV 10/26/20 19:00 10/26/20 19:59 DC 10/26/20 20:02 Vancomycin HCl 2 gm/Sodium Chloride 500 ml @ 250 mls/hr 1X ONCE IV 10/26/20 19:00 10/26/20 20:59 DC 10/26/20 19:12 Heparin Sodium (Porcine) (Heparin Sodium) 5,000 unit BID SQ 10/26/20 20:00 10/26/20 21:19 Aztreonam (Azactam) 0.5 gm Q12HR IVP 10/26/20 21:00 10/26/20 22:12 Sodium Chloride 1,000 ml @ 150 mls/hr Q6H40M IV 10/26/20 23:15 10/26/20 23:18 Sodium Chloride 1,000 ml @ 1,000 mls/hr 1X ONCE IV 10/27/20 01:00 10/27/20 01:59 DC 10/27/20 00:56 Magnesium Sulfate 50 ml @ 25 mls/hr 1X ONCE IV 10/27/20 07:30 10/27/20 09:29 DC 10/27/20 07:30 Amiodarone HCl 450 mg/Dextrose 259 ml @ 33 mls/hr 1X ONCE IV 10/27/20 08:00 10/27/20 15:50 10/27/20 08:00 Vasopressin 20 unit/Dextrose 101 ml @ 12 mls/hr CONT PRN IV SEE I/O RECORD 10/27/20 08:30 10/27/20 10:00 Norepinephrine Bitartrate 32 mg/ Dextrose 250 ml @ 0 mls/hr CONT PRN IV SEE I/O RECORD 10/27/20 09:30 10/27/20 10:00 Justifications for Admission Other Justification ISHAN ADLER MD Oct 27, 2020 10:38
[2020-10-27 10:41] LABS: CALCIUM 7.3 mg/dL (8.5-10.1); CREATININE 4.7 mg/dL (0.6-1.0); GFR 9.1
[2020-10-27] MEDS: AZTREONAM IV Push 1 GM VIAL. IVP SCH (10:50)
[2020-10-27] MEDS: HYDROCORTISONE SOD SUCC/PF 100 MG/2 ML VIAL. IVP SCH ×3 (10:50→21:32)
[2020-10-27] MEDS: HEPARIN for SUB-Q USE 5,000 UNIT/ML VIAL. SQ SCH ×2 (10:51→21:32)
[2020-10-27 10:56] LABS: ALBUMIN 1.4 g/dL (3.4-5.0); ALBUMIN/GLOBULIN RATIO 0.4 (1.0-1.7); MAGNESIUM 2.6 mg/dL (1.8-2.4); TOTAL BILIRUBIN 0.4 mg/dL (0.2-1.0); TOTAL PROTEIN 4.6 g/dL (6.4-8.2)
[2020-10-27 10:57] LABS: PHOSPHORUS 9.7 mg/dL (2.6-4.7); POTASSIUM 4.7 mmol/L (3.5-5.1)
--- NOTE | 2020-10-27 11:17 | PDOC5 ---
CODE REPORT CODE REPORT I responded to PEA arrest in ICU this am, septic shock transfer for HD (admitted overnight on levo). Pt developed ROSC quickly after my arrival and pt was intubated for airway protection by myself. Labs reviewed by myself. Left tibial IO placed. Patient with wide-complex tachycardia and arrested 2 more times, concerned initially for torsades versus hyperkalemia then ventricular tachycardia - treated with magnesium, lidocaine, amiodarone, calcium x2, i nsulin, bicarb, and acls medications (epineprhine and Na bicarb). Pt developed ROSC and was in sinus bradycardia in the 30s. Did not respond to 1 mg atropine and patient was transcutaneous paced. I d/w cardiology, Dr. Burton (hyperK less likely, no QTc prolongation or sine wave). Per specific medications/dosing, please see rn code note report. Pt in critical condition. Indication: Respiratory failure Consent: Unable to give consent due to emergent nature. Medications Used: see nursing note Procedure: The patient was placed in the appropriate position. Intubation was performed by myself with mac 3video laryngoscopy, 7-5 ett, 21 at lip, secured with RT device. Initial confirmation of placement included bilateral breath sounds, tube fogging, adequate chest rise, no gastric sounds, adequate pulse oximetry reading. ET tube was rechecked after ROSC with transcutaneous pacing- tube had been slightly removed with partially inflated balloon long term through vocal cords - tube was advanced. ETT deep suctioned by RT after rosc. CXR pending. The patient tolerated the procedure well. Complications: none. Critical Care: Authorized and Performed by: Imani Lobo DO Total critical care time: approximately 45 minutes Due to a high probability of clinically significant, life threatening deterioration, the patient required my highest level of preparedness to intervene emergently and I personally spent this critical care time directly and personally managing the patient. This critical care time included obtaining a history; examining the patient; pulse oximetry; ventilator management if necessary; ordering and review of studies; arranging urgent treatment with devel opment of a management plan; evaluation of patient's response to treatment; frequent reassessment; discussion with patient/family; and, discussions with other providers. This critical care time was performed to assess and manage the high probability of imminent, life-threatening deterioration that could result in multi-organ failure. It was exclusive of separately billable procedures and treating other patients and teaching time. Please see MDM section and the rest of the note for further information on pat ient assessment and treatment. IMANI ORTIZ DO Oct 27, 2020 11:17
--- NOTE | 2020-10-27 11:33 | NUR ---
At 0700, went in to patient's room and patient wasn't responding to verbal or physical stimuli. Patient audibly coarse throughout, SBP was in the 90s via manual cuff/doppler. Called RT for a BiPAP. Went back in patient's room, patient's HR was 44, was going to attempt to obtain BP via manual cuff/doppler when patient went asystole at 0710. See code blue sheet for details. Amiodarone gtt ordered, loading dose given during the code, 150mg bolus dose given IV push after ROSC was achieved and before the gtt was started. Levophed rapidly titrated post code, increased to a max of 0.5 mcg/kg/min, see IV spreadsheet. Critical labs received, re-almaz labs after lines placed. Consults called to Dr. Barraza, Dr. Leslie, and Dr. Contreras consulted. Dialysis initiated. [facility] referral made, will follow along. Patient's called during the code, came to the bedside, discussed the case with Dr. Leslie, decided to make patient a DNR and considering withdrawing care tomorrow if patient shows no improvement.
--- NOTE | 2020-10-27 11:47 | CONS ---
DATE OF CONSULTATION: 10/27/2020 PULMONARY CONSULTATION ATTENDING PHYSICIAN: Dr. Berger. REASON FOR CONSULTATION: Shock post-cardiac arrest. HISTORY OF PRESENT ILLNESS: The patient is a 75-year-old female who initially injured her left leg about 20 days ago. She refused to seek medical attention. She was then seen at [facility] where she stayed for 8 days for cellulitis. The patient was treated with clindamycin. She has a history of CKD stage IV. She has been on hemodialysis until 2012. The patient was transferred to our facility. En route, she became hypotensive. The patient was unresponsive. She was obtunded. She was hypotensive. She was intubated. The patient's renal function was worse with a potassium of 6.1 and a BUN of 92 and a creatinine of 6.5. The patient had a cardiac arrest. She had a CPR on and off for about 30 minutes. The patient had V-tach as well as asystole. A stat bedside echo has been done. I am waiting for the results. I have talked to Dr. Migel Urbano who said that her ejection fraction is 55%. The patient is hypotensive, on 2 vasopressors including Levophed and vasopressin. She is also bradycardic. She has a port for temporary pacemaker. Cardiology has also seen the patient. Her potassium was earlier 6.7. Her ABG showed a pH of 7.08, pCO2 of 36 and a pO2 of 94, bicarbonate of 11. She had also received 5 liters of IV fluids for shock. She has now been wheezing. Her chest x-ray was reviewed. There is mild cephalization of vessels and an endotracheal tube is in satisfactory position. Consultation is requested for further evaluation and management. PAST MEDICAL HISTORY: Significant for: 1. History of hypertension. 2. History of CKD stage 4. 3. History of osteoarthritis. 4. Diabetes. PAST SURGICAL HISTORY: No recent surgeries except an I and D into the left leg. ALLERGIES: PENICILLIN, CHLORPHENIRAMINE, CIPRO, CODEINE, PIOGLITAZONE and RAMIPRIL. REVIEW OF SYSTEMS: Unable to obtain as she is unresponsive and on the ventilator. MEDICATIONS: Reviewed including antibiotics, vancomycin. She is also on hydrocortisone and she received clindamycin at ____. PHYSICAL EXAMINATION: GENERAL: She is intubated. VITAL SIGNS: Blood pressure is in the 90s on 2 pressors. Pulse ox is 100%. HEENT: Sclerae nonicteric. NECK: Supple. LUNGS: With bilateral wheezes. CARDIOVASCULAR: With a regular rate. ABDOMEN: Soft, obese. EXTREMITIES: With cellulitis in the left lower leg and bilateral pitting edema. LABORATORY DATA: Reviewed. ABGs with a pH of 7.08, pCO2 of 36 and a pO2 of 94 with a bicarbonate of only 11. This was on room air. Pre-intubation, potassium 6.1 from 6.7. BUN 92, creatinine 6.5, magnesium 3.6. AST, ALT elevated CPK 438. Troponin 0.061. White cell count was 20.2 on admission and now 12.8, hemoglobin 6.7 and platelets are 172. IMPRESSION: 1. Acute respiratory failure secondary to multifactorial etiologies including cardiac arrest, severe metabolic acidosis and septic shock. 2. Status post cardiac arrest. She had V-tach and asystole. ACLS protocol was followed for 30 minutes. Possible anoxic brain injury. 3. Shock, likely septic. Source is cellulitis of the left lower extremity. Cannot exclude the possibility of cardiogenic shock as well. low EF at bedside echo 4. Acute kidney injury on chronic kidney disease with severe metabolic acidosis. 5. Abnormal LFTs secondary to hypoperfusion and shock. 6. Anemia. No obvious bleeding. 7. Leukocytosis. 8. Left lower extremity cellulitis. RECOMMENDATIONS: 1. The patient is currently intubated and sedated. We will obtain ABGs and make necessary adjustments. 2. Continue present vasopressor support. 3. Hemodialysis as soon as possible. Renal is already aware. 4. Correct metabolic acidosis. 5. Follow cardiology recommendation. Currently on amiodarone for V-tach. 6. Monitor potassium level. 7. Monitor hemoglobin closely. We will need transfusion with hemodialysis. 8. Broad spectrum antibiotics. We will add gram-negative coverage per Infectious Disease recommendation. 9. Continue hydrocortisone for refractory shock. 10. Discussed with RN and RT. Chart reviewed. Imaging studies reviewed. Post-intubation chest x-ray is pending. 11. I have discussed at length with the patient's who arrived at the bedside. He wants to make her DNR. He is okay to continue aggressive support for the next 24 hours. If there is no improvement, he wants to withdraw care and go for palliative extubation. RN was informed. He is agreeable for dialyzing her today.DNR for now Total critical care time, 50 minutes. ARTURO/JANET/CHIDI DR: Gladys TID: [id number] MTDD
[2020-10-27] MEDS ORDERED: ATROPINE 1 MG/10 ML DISP.SYRINGE. ONE (12:00)
[2020-10-27] MEDS ORDERED: MIDAZOLAM HCL/PF 5 MG/5 ML VIAL. ONE (12:00)
[2020-10-27] MEDS ORDERED: CALCIUM CHLORIDE 1,000 MG/10 ML DISP.SYRIN ONE (12:00)
[2020-10-27] MEDS ORDERED: MAGNESIUM SULFATE PREMIX 1 GM/100 ML BAG. IV ONE (12:00)
[2020-10-27] MEDS ORDERED: AMIODARONE 150 MG/3 ML VIAL ONE (12:00)
[2020-10-27] MEDS ORDERED: EPINEPHrine SYRINGE 1 MG/10 ML SYRINGE ONE (12:00)
--- NOTE | 2020-10-27 12:02 | PDOC2 ---
CONSULT Date of Consult Date of Consult DATE: 10/27/20 TIME: 11:52 Reason for Consult Reason for Consult: YUE AND ACIDOSIS Referring Physician Referring Physician: VITOR Identification/Chief Complaint Chief Complaint SEPSIS Source Source: Chart review History of Present Illness Reason for Visit: THIS IS A 75 YR OLD TRANSFERRED HERE FROM [facility]. APPARENTLY INJURED HER LEG A FEW WEEKS AGO BUT DID NOT SEEK ATTENTION TILL RECENTLY. STARTED ON CLINDAMYCIN. HAS STAGE 4 CKD. HAD YUE AND WAS ON HD IN THE PAST BUT TAKEN OFF IN 2012. CURRENTLY HERE IN THE ICU. SHE IS HYPOTENSIVE, SEPTIC AND IN RESP FAILURE REQUIRING MECHANICAL VENTILATION. SHE HAS A COMBINED MET AND RESP ACIDOSIS WITH ACIDEMIA. SHE HAS HAD A CARDIAC ARREST WITH V TACH AND ASYSTOLE WITH RESUSCITATION AND SUBSEQUENT INTUBATION. BASELINE CR IS SUB 3.0. ON TRANSFER HERE CR OF 6.9 AND K OF 6.1. OTHER LABS SHOW HYPERPHOSPHATEMIA, TRANSAMINITIS AND LEUCOCYTOSIS. SHE IS CRITICALLY ILL. 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 Past Medical History Cardiovascular: HTN Musculoskeletal: low back pain, Osteoarthritis Renal/: Chronic renal insuff Endocrine: Diabetes Past Surgical History Past Surgical History HX OF TDC Family History Family History: Coronary Artery Disease, Diabetes Social History Quit ALCOHOL: none Drugs: None Lives: with Family Current Problem List Problem List Problems Medical Problems: (1) Altered mental state Status: Acute (2) History of cellulitis Status: Acute (3) Multiorgan failure Status: Acute (4) Septic shock Status: Acute Current Medications Current Medications Current Medications Sodium Chloride 500 ml @ 1,000 mls/hr PRN Q30MIN PRN IV SEE COMMENTS; Start 10/26/20 at 16:30 Norepinephrine Bitartrate 8 mg/ Dextrose 258 ml @ 0 mls/hr CONT PRN IV SEE I/O RECORD Last administered on 10/27/20at 06:29; Start 10/26/20 at 16:30; Stop 10/27/20 at 09:19; Status DC Dobutamine HCl/ Dextrose 250 ml @ 0 mls/hr CONT PRN IV SEE I/O RECORD; Start 10/26/20 at 16:30 Sodium Chloride 1,000 ml @ 1,000 mls/hr 1X ONCE IV Last administered on 10/26at 16:43; Start 10/26/20 at 16:30; Stop 10/26/20 at 17:29; Status DC Ondansetron HCl (Zofran) 4 mg PRN Q8HRS PRN IV NAUSEA/VOMITING; Start 10/26/20 at 17:30; Stop 10/27/20 at 17:29 Vancomycin HCl (Vanco Per Pharmacy) 1 each PRN DAILY PRN MC SEE COMMENTS Last administered on 10/26/20at 21:36; Start 10/26/20 at 18:30 Piperacillin Sod/ Tazobactam Sod (Zosyn Per Pharmacy) 1 each PRN DAILY PRN MC SEE COMMENTS; Start 10/26/20 at 18:30; Status UNV Sodium Chloride 1,000 ml @ 1,000 mls/hr 1X ONCE IV Last administered on 10/26/20at 20:02; Start 10/26/20 at 19:00; Stop 10/26/20 at 19:59; Status DC Vancomycin HCl 2 gm/Sodium Chloride 500 ml @ 250 mls/hr 1X ONCE IV Last administered on 10/26/20at 19:12; Start 10/26/20 at 19:00; Stop 10/26/20 at 20:59; Status DC Heparin Sodium (Porcine) (Heparin Sodium) 5,000 unit BID SQ Last administered on 10/27/20at 10:51; Start 10/26/20 at 20:00 Aztreonam (Azactam) 0.5 gm Q12HR IVP Last administered on 10/27/20at 10:50; Start 10/26/20 at 21:00 Vancomycin HCl (Vancomycin Random Level) 1 each 1X ONCE MC ; Start 10/28/20 at 06:00; Stop 10/28/20 at 06:01 Sodium Chloride 1,000 ml @ 150 mls/hr Q6H40M IV Last administered on 10/27/20at 11:06; Start 10/26/20 at 23:15 Sodium Chloride 1,000 ml @ 1,000 mls/hr 1X ONCE IV Last administered on 10/27/20at 00:56; Start 10/27/20 at 01:00; Stop 10/27/20 at 01:59; Status DC Pharmacy Consult (C.diff Med Screen By Rx) 1 each 1X ONCE MC ; Start 10/27/20 at 05:45; Stop 10/27/20 at 05:46; Status DC Hydrocortisone Sodium Succinate (Solu-CORTEF) 100 mg Q8HRS IVP Last administered on 10/27/20at 10:50; Start 10/27/20 at 06:45 Fentanyl Citrate 30 ml @ 0 mls/hr CONT PRN IV SEE PROTOCOL; Start 10/27/20 at 07:30 Midazolam HCl 100 ml @ 0 mls/hr CONT PRN IV SEE PROTOCOL; Start 10/27/20 at 07:30 Magnesium Sulfate 50 ml @ 25 mls/hr 1X ONCE IV Last administered on 10/27/20at 07:30; Start 10/27/20 at 07:30; Stop 10/27/20 at 09:29; Status DC Amiodarone HCl 150 mg/Dextrose 103 ml @ 618 mls/hr 1X ONCE IV ; Start 10/27/20 at 07:45; Stop 10/27/20 at 07:54; Status DC Sodium Bicarbonate (Sodium Bicarb Adult 8.4% Syr) 50 meq STK-MED ONCE .ROUTE ; Start 10/27/20 at 07:36; Stop 10/27/20 at 07:37; Status DC Albuterol/ Ipratropium (Duoneb) 3 ml STK-MED ONCE .ROUTE ; Start 10/27/20 at 07:37; Stop 10/27/20 at 07:37; Status DC Amiodarone HCl 450 mg/Dextrose 259 ml @ 33 mls/hr 1X ONCE IV Last administered on 10/27/20at 08:00; Start 10/27/20 at 08:00; Stop 10/27/20 at 11:20; Status DC Vasopressin 20 unit/Dextrose 101 ml @ 12 mls/hr CONT PRN IV SEE I/O RECORD Las t administered on 10/27/20at 10:00; Start 10/27/20 at 08:30 Fentanyl Citrate (Fentanyl 2ml Vial) 100 mcg STK-MED ONCE .ROUTE ; Start 10/27/20 at 09:03; Stop 10/27/20 at 09:04; Status DC Norepinephrine Bitartrate 32 mg/ Dextrose 250 ml @ 0 mls/hr CONT PRN IV SEE I/O RECORD Last administered on 10/27/20at 10:00; Start 10/27/20 at 09:30 Insulin Human Lispro (HumaLOG VIAL for OP,RR ONLY) 100 unit STK-MED ONCE SQ ; Start 10/27/20 at 08:00; Stop 10/27/20 at 09:53; Status DC Sodium Chloride 1,000 ml @ 1,000 mls/hr Q1H PRN IV hypotension; Start 10/27/20 at 09:30; Stop 10/27/20 at 15:29 Albumin Human 200 ml @ 200 mls/hr 1X PRN PRN IV Hypotension Last administered on 10/27/20at 10:38; Start 10/27/20 at 09:30; Stop 10/27/20 at 15:29 Sodium Chloride 1,000 ml @ 400 mls/hr Q2H30M PRN IV PATENCY; Start 10/27/20 at 09:30; Stop 10/27/20 at 21:29 Info (PHARMACY MONITORING -- do not chart) 1 each PRN DAILY PRN MC SEE COMMENTS; Start 10/27/20 at 10:30; Status UNV Info (PHARMACY MONITORING -- do not chart) 1 each PRN DAILY PRN MC SEE COMMENTS; Start 10/27/20 at 10:30 Active Scripts Active Reported Propranolol Hcl 10 Mg Tablet 2 Tab PO BID Nystatin 15 Gm Powder 1 Fatoumata TP PRN BID PRN Hydroxychloroquine Sulfate 200 Mg Tablet 1 Tab PO BID Flax Oil (Flaxseed Oil) 1,000 Mg Capsule 1 Cap PO BID 30 Days Ocuvite Lutein 25-5 mg Softgel (Lutein/Zeaxanthin) 1 Each Capsule 1 Cap PO DAILY 30 Days Dulcolax (Bisacodyl) 5 Mg Tablet.dr 1 Tab PO PRN DAILY PRN 1 Days Colace (Docusate Sodium) 100 Mg Capsule 100 Mg PO PRN DAILY PRN Lantus Solostar (Insulin Glargine,Hum.rec.anlog) 100 Unit/1 Ml Insuln.pen 20 Unit SQ QHS Aspirin 81 Mg Tab.chew 1 Tab PO DAILY Folic Acid 0.8 Mg Tablet 1 Mg PO DAILY Vascepa (Icosapent Ethyl) 1 Gm Capsule 2 Cap PO BID [place] Thyroid (Thyroid,Pork) 60 Mg Tablet 1 Tab PO DAILY06 Januvia (Sitagliptin Phosphate) 100 Mg Tablet 1 Tab PO DAILY Febuxostat 40 Mg Tablet 1 Tab PO DAILY Atorvastatin Calcium 80 Mg Tablet 1 Tab PO HS Albuterol Sulfate Neb Soln (Albuterol Sulfate) 2.5 Mg/3 Ml Vial.neb 1 Vial NEB PRN Q4HRS PRN Lantus Solostar (Insulin Glargine,Hum.rec.anlog) 100 Unit/1 Ml Insuln.pen 20 Unit SQ HS Trulicity (Dulaglutide) 1.5 Mg/0.5 Ml Pen.injctr 0.5 Ml SQ WEEKLY Allergies Allergies: Coded Allergies: Penicillins (Verified Allergy, Intermediate, 10/26/20) chlorpheniramine (Verified Allergy, Intermediate, AKYLAMINE ANTIHISTAMINE, 10/26/20) ciprofloxacin (Verified Allergy, Intermediate, 10/26/20) codeine (Verified Allergy, Intermediate, 10/26/20) pioglitazone (Verified Allergy, Intermediate, 10/26/20) ramipril (Verified Allergy, Intermediate, 10/26/20) ROS Review of System UNABLE TO OBTAIN Physical Exam General: Other (SEDATED) HEENT: Other (ETT AND OGT) Lungs: Other (DECREASED AT BASES, ON THE VENT) Heart: Regular rate, Other (OCC TACHY) Abdomen: Other (HYPOACTIVE) Extremities: No cyanosis Skin: No breakdown Neuro: Other (SEDATED) Psych/Mental Status: Other (UNABLE TO ASSESS) MUSCULOSKELETAL: Other (COOL BUT NON CYANOTIC EXTREMITIES) Vitals VITALS Vital Signs Date Time Temp Pulse Resp B/P (MAP) Pulse Ox O2 Delivery O2 Flow Rate FiO2 10/27/20 11:00 87 24 142/65 (90) 100 Ventilator 10/27/20 07:00 15.0 10/27/20 04:00 97.1 97.1 Labs Labs Laboratory Tests Test 10/26/20 16:30 10/26/20 18:09 10/26/20 19:51 10/26/20 20:00 White Blood Count 20.2 x10^3/uL (4.0-11.0) Red Blood Count 2.80 x10^6/uL (3.50-5.40) Hemoglobin 8.5 g/dL (12.0-15.5) Hematocrit 26.7 % (36.0-47.0) Mean Corpuscular Volume 96 fL (79-100) Mean Corpuscular Hemoglobin 31 pg (25-35) Mean Corpuscular Hemoglobin Concent 32 g/dL (31-37) Red Cell Distribution Width 14.2 % (11.5-14.5) Platelet Count 270 x10^3/uL (140-400) Neutrophils (%) (Auto) 92 % (31-73) Lymphocytes (%) (Auto) 3 % (24-48) Monocytes (%) (Auto) 3 % (0-9) Eosinophils (%) (Auto) 1 % (0-3) Basophils (%) (Auto) 1 % (0-3) Neutrophils # (Auto) 18.7 x10^3/uL (1.8-7.7) Lymphocytes # (Auto) 0.5 x10^3/uL (1.0-4.8) Monocytes # (Auto) 0.7 x10^3/uL (0.0-1.1) Eosinophils # (Auto) 0.2 x10^3/uL (0.0-0.7) Basophils # (Auto) 0.1 x10^3/uL (0.0-0.2) Segmented Neutrophils % 46 % (35-66) Band Neutrophils % 43 % (0-9) Lymphocytes % 3 % (24-48) Monocytes % 6 % (0-10) Eosinophils % 1 % (0-5) Metamyelocytes % 1 % (0-0) Platelet Estimate Adequate (ADEQUATE) Poikilocytosis Marked [place] Cells Many Schistocytes Occ Sodium Level 138 mmol/L (136-145) Potassium Level 5.6 mmol/L (3.5-5.1) Chloride Level 103 mmol/L (98-107) Carbon Dioxide Level 18 mmol/L (21-32) Anion Gap 17 (6-14) Blood Urea Nitrogen 86 mg/dL (7-20) Creatinine 6.5 mg/dL (0.6-1.0) Estimated GFR (Cockcroft-Gault) 6.2 Glucose Level 121 mg/dL (70-99) Lactic Acid Level 2.4 mmol/L (0.4-2.0) 1.6 mmol/L (0.4-2.0) Calcium Level 7.3 mg/dL (8.5-10.1) Total Bilirubin 0.3 mg/dL (0.2-1.0) Direct Bilirubin 0.1 mg/dL (0.0-0.2) Aspartate Amino Transf (AST/SGOT) 407 U/L (15-37) Alanine Aminotransferase (ALT/SGPT) 229 U/L (14-59) Alkaline Phosphatase 175 U/L (46-116) Troponin I Quantitative 0.061 ng/mL (0.000-0.055) Total Protein 5.3 g/dL (6.4-8.2) Albumin 1.7 g/dL (3.4-5.0) Procalcitonin 1.46 ng/mL (0.00-0.10) Bedside Venous pH 7.07 (7.32-7.42) Bedside Venous pCO2 49 mmHg (41-51) Bedside Venous pO2 226 mmHg (20-40) Venous Blood HCO3 14 mmol/L (24-28) POC Venous O2 Saturation (Thierno) 99 % Bedside FiO2 21.0 Creatine Kinase 438 U/L (26-192) O2 Saturation 95 % (92-99) Arterial Blood pH 7.08 (7.35-7.45) Arterial Blood pCO2 at Patient Temp 36 mmHg (35-46) Arterial Blood pO2 at Patient Temp 94 mmHg (65-108) Arterial Blood HCO3 11 mmol/L (21-28) Arterial Blood Base Excess -18 mmol/L (-3-3) FiO2 40% venti mask Test 10/27/20 05:19 10/27/20 07:25 10/27/20 07:32 10/27/20 08:20 Glucose (Fingerstick) 176 mg/dL (70-99) 173 mg/dL (70-99) O2 Saturation 99 % (92-99) Arterial Blood pH 6.98 (7.35-7.45) Arterial Blood pCO2 at Patient Temp 37 mmHg (35-46) Arterial Blood pO2 at Patient Temp 311 mmHg (65-108) Arterial Blood HCO3 9 mmol/L (21-28) Arterial Blood Base Excess -22 mmol/L (-3-3) Oxyhemoglobin 98.4 % Methemoglobin 0.6 % (0.0-1.9) Carbon Monoxide, Quantitative 0.3 % (0.0-1.9) FiO2 100/vent White Blood Count 12.8 x10^3/uL (4.0-11.0) Red Blood Count 2.24 x10^6/uL (3.50-5.40) Hemoglobin 6.7 g/dL (12.0-15.5) Hematocrit 24.5 % (36.0-47.0) Mean Corpuscular Volume 107 fL (79-100) Mean Corpuscular Hemoglobin 30 pg (25-35) Mean Corpuscular Hemoglobin Concent 27 g/dL (31-37) Red Cell Distribution Width 15.5 % (11.5-14.5) Platelet Count 172 x10^3/uL (140-400) Neutrophils (%) (Auto) 82 % (31-73) Lymphocytes (%) (Auto) 12 % (24-48) Monocytes (%) (Auto) 6 % (0-9) Eosinophils (%) (Auto) 0 % (0-3) Basophils (%) (Auto) 0 % (0-3) Neutrophils # (Auto) 10.5 x10^3/uL (1.8-7.7) Lymphocytes # (Auto) 1.6 x10^3/uL (1.0-4.8) Monocytes # (Auto) 0.7 x10^3/uL (0.0-1.1) Eosinophils # (Auto) 0.0 x10^3/uL (0.0-0.7) Basophils # (Auto) 0.0 x10^3/uL (0.0-0.2) Sodium Level 142 mmol/L (136-145) Potassium Level 6.1 mmol/L (3.5-5.1) Chloride Level 105 mmol/L (98-107) Carbon Dioxide Level 15 mmol/L (21-32) Anion Gap 22 (6-14) Blood Urea Nitrogen 92 mg/dL (7-20) Creatinine 6.5 mg/dL (0.6-1.0) Estimated GFR (Cockcroft-Gault) 6.2 BUN/Creatinine Ratio 14 (6-20) Glucose Level 292 mg/dL (70-99) Calcium Level 8.4 mg/dL (8.5-10.1) Phosphorus Level 17.5 mg/dL (2.6-4.7) Magnesium Level 3.6 mg/dL (1.8-2.4) Total Bilirubin 0.3 mg/dL (0.2-1.0) Aspartate Amino Transf (AST/SGOT) 1088 U/L (15-37) Alanine Aminotransferase (ALT/SGPT) 489 U/L (14-59) Alkaline Phosphatase 180 U/L (46-116) Total Protein 3.7 g/dL (6.4-8.2) Albumin 1.3 g/dL (3.4-5.0) Albumin/Globulin Ratio 0.5 (1.0-1.7) Test 10/27/20 10:10 White Blood Count 10.0 x10^3/uL (4.0-11.0) Red Blood Count 2.63 x10^6/uL (3.50-5.40) Hemoglobin 8.0 g/dL (12.0-15.5) Hematocrit 24.7 % (36.0-47.0) Mean Corpuscular Volume 94 fL (79-100) Mean Corpuscular Hemoglobin 30 pg (25-35) Mean Corpuscular Hemoglobin Concent 32 g/dL (31-37) Red Cell Distribution Width 14.0 % (11.5-14.5) Platelet Count 203 x10^3/uL (140-400) Neutrophils (%) (Auto) 89 % (31-73) Lymphocytes (%) (Auto) 8 % (24-48) Monocytes (%) (Auto) 1 % (0-9) Eosinophils (%) (Auto) 1 % (0-3) Basophils (%) (Auto) 1 % (0-3) Neutrophils # (Auto) 8.9 x10^3/uL (1.8-7.7) Lymphocytes # (Auto) 0.8 x10^3/uL (1.0-4.8) Monocytes # (Auto) 0.1 x10^3/uL (0.0-1.1) Eosinophils # (Auto) 0.1 x10^3/uL (0.0-0.7) Basophils # (Auto) 0.1 x10^3/uL (0.0-0.2) Sodium Level 142 mmol/L (136-145) Potassium Level 4.7 mmol/L (3.5-5.1) Chloride Level 105 mmol/L (98-107) Carbon Dioxide Level 17 mmol/L (21-32) Anion Gap 20 (6-14) Blood Urea Nitrogen 68 mg/dL (7-20) Creatinine 4.7 mg/dL (0.6-1.0) Estimated GFR (Cockcroft-Gault) 9.1 BUN/Creatinine Ratio 14 (6-20) Glucose Level 204 mg/dL (70-99) Calcium Level 7.3 mg/dL (8.5-10.1) Phosphorus Level 9.7 mg/dL (2.6-4.7) Magnesium Level 2.6 mg/dL (1.8-2.4) Total Bilirubin 0.4 mg/dL (0.2-1.0) Aspartate Amino Transf (AST/SGOT) 2093 U/L (15-37) Alanine Aminotransferase (ALT/SGPT) 835 U/L (14-59) Alkaline Phosphatase 233 U/L (46-116) Total Protein 4.6 g/dL (6.4-8.2) Albumin 1.4 g/dL (3.4-5.0) Albumin/Globulin Ratio 0.4 (1.0-1.7) Laboratory Tests Test 10/26/20 16:30 10/26/20 18:09 10/26/20 19:51 10/26/20 20:00 White Blood Count 20.2 x10^3/uL (4.0-11.0) Red Blood Count 2.80 x10^6/uL (3.50-5.40) Hemoglobin 8.5 g/dL (12.0-15.5) Hematocrit 26.7 % (36.0-47.0) Mean Corpuscular Volume 96 fL (79-100) Mean Corpuscular Hemoglobin 31 pg (25-35) Mean Corpuscular Hemoglobin Concent 32 g/dL (31-37) Red Cell Distribution Width 14.2 % (11.5-14.5) Platelet Count 270 x10^3/uL (140-400) Neutrophils (%) (Auto) 92 % (31-73) Lymphocytes (%) (Auto) 3 % (24-48) Monocytes (%) (Auto) 3 % (0-9) Eosinophils (%) (Auto) 1 % (0-3) Basophils (%) (Auto) 1 % (0-3) Neutrophils # (Auto) 18.7 x10^3/uL (1.8-7.7) Lymphocytes # (Auto) 0.5 x10^3/uL (1.0-4.8) Monocytes # (Auto) 0.7 x10^3/uL (0.0-1.1) Eosinophils # (Auto) 0.2 x10^3/uL (0.0-0.7) Basophils # (Auto) 0.1 x10^3/uL (0.0-0.2) Segmented Neutrophils % 46 % (35-66) Band Neutrophils % 43 % (0-9) Lymphocytes % 3 % (24-48) Monocytes % 6 % (0-10) Eosinophils % 1 % (0-5) Metamyelocytes % 1 % (0-0) Platelet Estimate Adequate (ADEQUATE) Poikilocytosis Marked [place] Cells Many Schistocytes Occ Sodium Level 138 mmol/L (136-145) Potassium Level 5.6 mmol/L (3.5-5.1) Chloride Level 103 mmol/L (98-107) Carbon Dioxide Level 18 mmol/L (21-32) Anion Gap 17 (6-14) Blood Urea Nitrogen 86 mg/dL (7-20) Creatinine 6.5 mg/dL (0.6-1.0) Estimated GFR (Cockcroft-Gault) 6.2 Glucose Level 121 mg/dL (70-99) Lactic Acid Level 2.4 mmol/L (0.4-2.0) 1.6 mmol/L (0.4-2.0) Calcium Level 7.3 mg/dL (8.5-10.1) Total Bilirubin 0.3 mg/dL (0.2-1.0) Direct Bilirubin 0.1 mg/dL (0.0-0.2) Aspartate Amino Transf (AST/SGOT) 407 U/L (15-37) Alanine Aminotransferase (ALT/SGPT) 229 U/L (14-59) Alkaline Phosphatase 175 U/L (46-116) Troponin I Quantitative 0.061 ng/mL (0.000-0.055) Total Protein 5.3 g/dL (6.4-8.2) Albumin 1.7 g/dL (3.4-5.0) Procalcitonin 1.46 ng/mL (0.00-0.10) Bedside Venous pH 7.07 (7.32-7.42) Bedside Venous pCO2 49 mmHg (41-51) Bedside Venous pO2 226 mmHg (20-40) Venous Blood HCO3 14 mmol/L (24-28) POC Venous O2 Saturation (Thierno) 99 % Bedside FiO2 21.0 Creatine Kinase 438 U/L (26-192) O2 Saturation 95 % (92-99) Arterial Blood pH 7.08 (7.35-7.45) Arterial Blood pCO2 at Patient Temp 36 mmHg (35-46) Arterial Blood pO2 at Patient Temp 94 mmHg (65-108) Arterial Blood HCO3 11 mmol/L (21-28) Arterial Blood Base Excess -18 mmol/L (-3-3) FiO2 40% venti mask Test 10/27/20 05:19 10/27/20 07:25 10/27/20 07:32 10/27/20 08:20 Glucose (Fingerstick) 176 mg/dL (70-99) 173 mg/dL (70-99) O2 Saturation 99 % (92-99) Arterial Blood pH 6.98 (7.35-7.45) Arterial Blood pCO2 at Patient Temp 37 mmHg (35-46) Arterial Blood pO2 at Patient Temp 311 mmHg (65-108) Arterial Blood HCO3 9 mmol/L (21-28) Arterial Blood Base Excess -22 mmol/L (-3-3) Oxyhemoglobin 98.4 % Methemoglobin 0.6 % (0.0-1.9) Carbon Monoxide, Quantitative 0.3 % (0.0-1.9) FiO2 100/vent White Blood Count 12.8 x10^3/uL (4.0-11.0) Red Blood Count 2.24 x10^6/uL (3.50-5.40) Hemoglobin 6.7 g/dL (12.0-15.5) Hematocrit 24.5 % (36.0-47.0) Mean Corpuscular Volume 107 fL (79-100) Mean Corpuscular Hemoglobin 30 pg (25-35) Mean Corpuscular Hemoglobin Concent 27 g/dL (31-37) Red Cell Distribution Width 15.5 % (11.5-14.5) Platelet Count 172 x10^3/uL (140-400) Neutrophils (%) (Auto) 82 % (31-73) Lymphocytes (%) (Auto) 12 % (24-48) Monocytes (%) (Auto) 6 % (0-9) Eosinophils (%) (Auto) 0 % (0-3) Basophils (%) (Auto) 0 % (0-3) Neutrophils # (Auto) 10.5 x10^3/uL (1.8-7.7) Lymphocytes # (Auto) 1.6 x10^3/uL (1.0-4.8) Monocytes # (Auto) 0.7 x10^3/uL (0.0-1.1) Eosinophils # (Auto) 0.0 x10^3/uL (0.0-0.7) Basophils # (Auto) 0.0 x10^3/uL (0.0-0.2) Sodium Level 142 mmol/L (136-145) Potassium Level 6.1 mmol/L (3.5-5.1) Chloride Level 105 mmol/L (98-107) Carbon Dioxide Level 15 mmol/L (21-32) Anion Gap 22 (6-14) Blood Urea Nitrogen 92 mg/dL (7-20) Creatinine 6.5 mg/dL (0.6-1.0) Estimated GFR (Cockcroft-Gault) 6.2 BUN/Creatinine Ratio 14 (6-20) Glucose Level 292 mg/dL (70-99) Calcium Level 8.4 mg/dL (8.5-10.1) Phosphorus Level 17.5 mg/dL (2.6-4.7) Magnesium Level 3.6 mg/dL (1.8-2.4) Total Bilirubin 0.3 mg/dL (0.2-1.0) Aspartate Amino Transf (AST/SGOT) 1088 U/L (15-37) Alanine Aminotransferase (ALT/SGPT) 489 U/L (14-59) Alkaline Phosphatase 180 U/L (46-116) Total Protein 3.7 g/dL (6.4-8.2) Albumin 1.3 g/dL (3.4-5.0) Albumin/Globulin Ratio 0.5 (1.0-1.7) Test 10/27/20 10:10 White Blood Count 10.0 x10^3/uL (4.0-11.0) Red Blood Count 2.63 x10^6/uL (3.50-5.40) Hemoglobin 8.0 g/dL (12.0-15.5) Hematocrit 24.7 % (36.0-47.0) Mean Corpuscular Volume 94 fL (79-100) Mean Corpuscular Hemoglobin 30 pg (25-35) Mean Corpuscular Hemoglobin Concent 32 g/dL (31-37) Red Cell Distribution Width 14.0 % (11.5-14.5) Platelet Count 203 x10^3/uL (140-400) Neutrophils (%) (Auto) 89 % (31-73) Lymphocytes (%) (Auto) 8 % (24-48) Monocytes (%) (Auto) 1 % (0-9) Eosinophils (%) (Auto) 1 % (0-3) Basophils (%) (Auto) 1 % (0-3) Neutrophils # (Auto) 8.9 x10^3/uL (1.8-7.7) Lymphocytes # (Auto) 0.8 x10^3/uL (1.0-4.8) Monocytes # (Auto) 0.1 x10^3/uL (0.0-1.1) Eosinophils # (Auto) 0.1 x10^3/uL (0.0-0.7) Basophils # (Auto) 0.1 x10^3/uL (0.0-0.2) Sodium Level 142 mmol/L (136-145) Potassium Level 4.7 mmol/L (3.5-5.1) Chloride Level 105 mmol/L (98-107) Carbon Dioxide Level 17 mmol/L (21-32) Anion Gap 20 (6-14) Blood Urea Nitrogen 68 mg/dL (7-20) Creatinine 4.7 mg/dL (0.6-1.0) Estimated GFR (Cockcroft-Gault) 9.1 BUN/Creatinine Ratio 14 (6-20) Glucose Level 204 mg/dL (70-99) Calcium Level 7.3 mg/dL (8.5-10.1) Phosphorus Level 9.7 mg/dL (2.6-4.7) Magnesium Level 2.6 mg/dL (1.8-2.4) Total Bilirubin 0.4 mg/dL (0.2-1.0) Aspartate Amino Transf (AST/SGOT) 2093 U/L (15-37) Alanine Aminotransferase (ALT/SGPT) 835 U/L (14-59) Alkaline Phosphatase 233 U/L (46-116) Total Protein 4.6 g/dL (6.4-8.2) Albumin 1.4 g/dL (3.4-5.0) Albumin/Globulin Ratio 0.4 (1.0-1.7) Assessment/Plan Assessment/Plan IMP YUE-ATN HYPERKALEMIA CKD STAGE 4-CR 2.5-3.0 MET AND RESP ACIDOSIS ACIDEMIA ACUTE RESP FAILURE HYPERPHOSPHATEMIA HYPOTENSION SEPSIS LEUCOCYTOSIS LLE CELLULITIS TRANSAMINITIS S/P CARDIAC ARREST PLAN VENT SUPPORT PRESSORS IR TO PLACE TEMP HD LINE EMERGENT HD 40 HCO3 DIALYSATE ANTIBIOTICS CARDIOLOGY, PULM AND ID EVAL AND TX CRITICALLY ILL PT D/W DR VARMA POOR PROGNOSIS . HENRY MULLER MD Oct 27, 2020 12:02
--- NOTE | 2020-10-27 15:43 | NUR ---
SS following for discharge planning. SS reviewed pt chart and discussed with pt RN. Pt is from home with spouse. Pt CODED this AM and was intubated. Pt is currently on the vent at 40%. Hemodialysis today. Not stable. Tentative withdraw of care tomorrow. SS will continue to follow for discharge planning.
[2020-10-27 16:08] LABS: BASE EXCESS ABG -7 mmol/L (-3-3); FIO2 ABG 40/VENT; HCO3 ABG 19 mmol/L (21-28); PCO2 ABG 36 mmHg (35-46); PO2 ABG 77 mmHg (65-108); SAT O2 ABG 93 % (92-99)
[2020-10-27] MEDS: VANCOMYCIN PER PHARMACY MC PRN (16:13)
--- NOTE | 2020-10-27 16:53 | NUR ---
Wound/Ostomy Care Wound Type/Assessment: Patient seen per wound care consult. See wound assessment. Patient had I&D to left lower lateral leg yesterday at [facility]. the leg was a recent trauma wound, which turned to cellulitis and continued to worsen even with Abx. Wound cleansed and assessed. There is large amounts of swelling, in the leg and foot, very cool, and discolored. RN stated the discoloring could be from recent IO that was placed in that leg previously that was utilized. Possible withdraw of treatment tomorrow according to the RN. Treatment Recommendations/Plan: Recommendations to lightly pack with 1/4 inch Iodoform gauze packing, cover with ABD pad and kerlix. Change daily. Education provided: Unable to educated, pt is currently vented. Offloading surface/device: Pt is on an ICU bed at this time. RN stated pt was just turned to her back and no wounds noted on her back. RN stated she would like patient on back side as she seems to continue to be more stable that way. Recommended Referrals/Tests: If progressive care is decided pt will most likely need and x-ray of that left lateral lower leg and consult with ortho. Discharge Recommendations for dressings: Continue current treatment and further recommendations will depend on future POC. Dressing change instructions left in room. Wound care will check chart daily and follow up again on Saturday.
[2020-10-27] MEDS ORDERED: MEROPENEM 500 MG in IV NORMAL SALINE 50ML 50 ML IV SCH (18:00)
[2020-10-27] MEDS ORDERED: DAPTOmycin (GENERIC) IVPB 500 MG in IV NORMAL SALINE 50ML 50 ML IV SCH (18:00)
--- NOTE | 2020-10-27 20:47 | PDOC ---
Infectious Disease Note Vital Signs: Vital Signs Vital Signs Date Time Temp Pulse Resp B/P (MAP) Pulse Ox O2 Delivery O2 Flow Rate FiO2 10/27/20 18:05 100 Ventilator 10/27/20 18:00 91 24 147/61 (89) 10/27/20 16:00 98.2 98.2 10/27/20 07:00 15.0 Medications: Inpatient Meds: Medications reviewed. Labs: Lab Laboratory Tests Test 10/27/20 05:19 10/27/20 07:25 10/27/20 07:32 10/27/20 08:20 Glucose (Fingerstick) 176 mg/dL (70-99) 173 mg/dL (70-99) O2 Saturation 99 % (92-99) Arterial Blood pH 6.98 (7.35-7.45) Arterial Blood pCO2 at Patient Temp 37 mmHg (35-46) Arterial Blood pO2 at Patient Temp 311 mmHg (65-108) Arterial Blood HCO3 9 mmol/L (21-28) Arterial Blood Base Excess -22 mmol/L (-3-3) Oxyhemoglobin 98.4 % Methemoglobin 0.6 % (0.0-1.9) Carbon Monoxide, Quantitative 0.3 % (0.0-1.9) FiO2 100/vent White Blood Count 12.8 x10^3/uL (4.0-11.0) Red Blood Count 2.24 x10^6/uL (3.50-5.40) Hemoglobin 6.7 g/dL (12.0-15.5) Hematocrit 24.5 % (36.0-47.0) Mean Corpuscular Volume 107 fL (79-100) Mean Corpuscular Hemoglobin 30 pg (25-35) Mean Corpuscular Hemoglobin Concent 27 g/dL (31-37) Red Cell Distribution Width 15.5 % (11.5-14.5) Platelet Count 172 x10^3/uL (140-400) Neutrophils (%) (Auto) 82 % (31-73) Lymphocytes (%) (Auto) 12 % (24-48) Monocytes (%) (Auto) 6 % (0-9) Eosinophils (%) (Auto) 0 % (0-3) Basophils (%) (Auto) 0 % (0-3) Neutrophils # (Auto) 10.5 x10^3/uL (1.8-7.7) Lymphocytes # (Auto) 1.6 x10^3/uL (1.0-4.8) Monocytes # (Auto) 0.7 x10^3/uL (0.0-1.1) Eosinophils # (Auto) 0.0 x10^3/uL (0.0-0.7) Basophils # (Auto) 0.0 x10^3/uL (0.0-0.2) Sodium Level 142 mmol/L (136-145) Potassium Level 6.1 mmol/L (3.5-5.1) Chloride Level 105 mmol/L (98-107) Carbon Dioxide Level 15 mmol/L (21-32) Anion Gap 22 (6-14) Blood Urea Nitrogen 92 mg/dL (7-20) Creatinine 6.5 mg/dL (0.6-1.0) Estimated GFR (Cockcroft-Gault) 6.2 BUN/Creatinine Ratio 14 (6-20) Glucose Level 292 mg/dL (70-99) Calcium Level 8.4 mg/dL (8.5-10.1) Phosphorus Level 17.5 mg/dL (2.6-4.7) Magnesium Level 3.6 mg/dL (1.8-2.4) Total Bilirubin 0.3 mg/dL (0.2-1.0) Aspartate Amino Transf (AST/SGOT) 1088 U/L (15-37) Alanine Aminotransferase (ALT/SGPT) 489 U/L (14-59) Alkaline Phosphatase 180 U/L (46-116) Total Protein 3.7 g/dL (6.4-8.2) Albumin 1.3 g/dL (3.4-5.0) Albumin/Globulin Ratio 0.5 (1.0-1.7) Test 10/27/20 10:10 10/27/20 15:13 White Blood Count 10.0 x10^3/uL (4.0-11.0) Red Blood Count 2.63 x10^6/uL (3.50-5.40) Hemoglobin 8.0 g/dL (12.0-15.5) Hematocrit 24.7 % (36.0-47.0) Mean Corpuscular Volume 94 fL (79-100) Mean Corpuscular Hemoglobin 30 pg (25-35) Mean Corpuscular Hemoglobin Concent 32 g/dL (31-37) Red Cell Distribution Width 14.0 % (11.5-14.5) Platelet Count 203 x10^3/uL (140-400) Neutrophils (%) (Auto) 89 % (31-73) Lymphocytes (%) (Auto) 8 % (24-48) Monocytes (%) (Auto) 1 % (0-9) Eosinophils (%) (Auto) 1 % (0-3) Basophils (%) (Auto) 1 % (0-3) Neutrophils # (Auto) 8.9 x10^3/uL (1.8-7.7) Lymphocytes # (Auto) 0.8 x10^3/uL (1.0-4.8) Monocytes # (Auto) 0.1 x10^3/uL (0.0-1.1) Eosinophils # (Auto) 0.1 x10^3/uL (0.0-0.7) Basophils # (Auto) 0.1 x10^3/uL (0.0-0.2) Sodium Level 142 mmol/L (136-145) Potassium Level 4.7 mmol/L (3.5-5.1) Chloride Level 105 mmol/L (98-107) Carbon Dioxide Level 17 mmol/L (21-32) Anion Gap 20 (6-14) Blood Urea Nitrogen 68 mg/dL (7-20) Creatinine 4.7 mg/dL (0.6-1.0) Estimated GFR (Cockcroft-Gault) 9.1 BUN/Creatinine Ratio 14 (6-20) Glucose Level 204 mg/dL (70-99) Calcium Level 7.3 mg/dL (8.5-10.1) Phosphorus Level 9.7 mg/dL (2.6-4.7) Magnesium Level 2.6 mg/dL (1.8-2.4) Total Bilirubin 0.4 mg/dL (0.2-1.0) Aspartate Amino Transf (AST/SGOT) 2093 U/L (15-37) Alanine Aminotransferase (ALT/SGPT) 835 U/L (14-59) Alkaline Phosphatase 233 U/L (46-116) Total Protein 4.6 g/dL (6.4-8.2) Albumin 1.4 g/dL (3.4-5.0) Albumin/Globulin Ratio 0.4 (1.0-1.7) Hepatitis B Surface Antigen Nonreactive (Nonreactive) Hepatitis B Surface Antibody Nonreactive O2 Saturation 93 % (92-99) Arterial Blood pH 7.33 (7.35-7.45) Arterial Blood pCO2 at Patient Temp 36 mmHg (35-46) Arterial Blood pO2 at Patient Temp 77 mmHg (65-108) Arterial Blood HCO3 19 mmol/L (21-28) Arterial Blood Base Excess -7 mmol/L (-3-3) FiO2 40/vent Objective: Assessment: Late entry Pt seen and examined around noon today ID consult dictated Plan: Plan of Care Severe sepsis LLE cellulitis cults at osh grp g strep and MSSA S/P Cardiac arrest Acute hypoxic resp failure YUE with CKD,severe metabolic acidosis , Hyperkalemia Shock Liver PCN allergy per osh pharmacy had hives, tolerated merrem well there Cipro allergy REC: DC Vanc due to YUE Dapto Merrem DC Aztreonam BC today Critically Ill Prognosis very poor Plans are to palliative extubate if no improvement in 24 hrs per team D/W RN Thank you SWETA GOMEZ MD Oct 27, 2020 20:47
[2020-10-27] MEDS ORDERED: FAMOTIDINE 20 MG/2 ML VIAL IVP SCH (21:00)
--- NOTE | 2020-10-27 21:46 | NUR ---
At 1999 I went in for my assessment. When I tried to deep suction the patient, the catheter would not go down further than a couple inches. I tried to twist the catheter to a different angle and suction with the tube at a different angle with no luck. The tube was accurately placed at 24 at the gum (the same as what was given in report and what was charted). The patient began to desat (lowest was 79%) so I gave her 100% O2 to keep her O2 level stable. I bolused patient with Fentanyl in case she was biting down on the tube, but this was not successful. I called RT and notified them of the issue. Anya, RT, came to assess patient but had same problems. She tried to lavage and bag the patient in case there was a plug but this was also not successful. She notified Juan A RT, to come look at patient. Shira RN, came in and tried to suction from different angles and thought there must be a kink in the ETT since we could barely advance the catheter but the patient was easy to bag. During this time her FiO2 was turned up to 100% so we did not have to keep pressing the button to keep her sats up. I ordered a stat CXR to make sure the tube was still in the correct place and that it was not kinked. Still awaiting those results, patient currently satting 95% on 100% FiO2 and stable at this time. At 2099 I received a call from Nichelle, the patient's niece. She stated that Jose Miguel, the patient's , had told her that we had gotten special permission for her to come in after visiting hours so she was on her way from [place]. I informed her that our visiting hours were from 7a-7p and that I was not informed of the special circumstances for her to visit after hours. I told her I would talk to my CN and manager market research and call her back. I spoke to LAURA Zuleta, who said that her and the nursing food checkers and cashiers supervisor both were not aware of anyone who was to come up after visiting hours. I called Sally, nurse manager market research, to inquire about the special circumstance and she said she had not given anyone permission to come up tonight since the patient was stable. I called Nichelle back to inform her that she would not be able to come up tonight since the patient was stable, but that she could come up at 7 am when visiting hours began. She argued that the patient was going to tomorrow so she should be able to come up and see her, especially since she was already in the parking lot. I told her that I had spoken with my manager market research and without her permission we were not to let visitors in after hours. I told her that the patient was stable for tonight and that she would be able to come in and see the patient before withdrawal of care. She asked to speak to the charge nurse. I placed her on hold, and when LAURA Zuleta, went to pick up driver the phone no one was there. Security was informed that no further visitors are to be allowed up tonight, and I have not heard anything else from the patient's niece.
--- NOTE | 2020-10-27 21:55 | RAD ---
Exam: Chest one view INDICATION: Endotracheal tube placement TECHNIQUE: Frontal view of the chest Comparisons: 10/27/2020 FINDINGS: Enteric tube traverses below the diaphragm distal extent not visualized likely in the stomach. There is a double-lumen catheter with tip at the atrial caval junction. Right IJ catheter with tip in the S VC. Endotracheal tube with tip approximately 2 cm above the christi. The cardiomediastinal silhouette and pulmonary vessels are within normal limits. Hazy bibasilar airspace disease. No pleural effusion. IMPRESSION: Lines and tubes described above. Electronically signed by: Negrito Victoria MD (10/27/2020 9:52 PM) MALKA
[2020-10-28] VITALS (13 sets, daily range): BP systolic 84–119; BP diastolic 26–37
--- NOTE | 2020-10-28 00:19 | NUR ---
During my midnight assessment, patient's O2 sat dropped to low 80s. I suctioned the patient and bolused with Fentanyl, but no improvement. RT notified, stated there wasn't anything else they could do. Dr. Leslie notified, order received to increase PEEP to 8. Will notify RT to make changes. Addendum: 10/28/20 at 0058 by SUZETTE WARREN RN RN After PEEP increased to 8, patient's O2 sat dropped to 50%, BP dropped to 80s, and HR dropped into 60s. I attempted to notify Jose Miguel, patient's , about patient's decline, but he did not answer. He called back about 10 minutes later and the patient's sat had increased to upper 80s, BP increased with increase in Levophed, and HR stabilized. Jose Miguel asked if I thought he should come in. I told him that she had improved since I had called and that I would give him a call in about 10 minutes to let him know if she had improved or not, which would impact if he came to see her. Currently patient's BP is stable in 100s, HR stable in 70s, and O2 sat between 87-91%. Will notify Jose Miguel of any further decline, but no plan for him to come to the hospital at this time.
[2020-10-28] MEDS: VASOPRESSIN 20 UNIT in IV DEXTROSE 5% 100ML 100 ML IV PRN (01:19)
--- NOTE | 2020-10-28 01:32 | CONS ---
DATE OF CONSULTATION: 10/27/2020 REFERRING PHYSICIAN: Dr. Berger. REASON FOR CONSULTATION: Severe sepsis, left lower extremity infection. HISTORY OF PRESENT ILLNESS: A 75-year-old female transferred from [place], currently in ICU, status post cardiac arrest this morning with resuscitation, currently on pressure support, intubated. No family at bedside. History obtained from chart and medical staff. The patient is a 75-year-old female who was transferred from [facility] where she presented on 10/19/2020 with complaints of wound on the lateral aspect of the left ankle, which is sustained after a fall approximately 3 weeks prior to admission. Reviewed records from Outside facility. Patient was found to have left lower extremity wound/abscess. Orthopedics was consulted. MRI for the left lower extremity was obtained. Patient underwent I and D of the left lower leg on 10/25/2020. Cultures are positive for group G strep and MSSA. Blood culture was reported positive for MSSE on October 18, 2020. It appears that patient was on IV vancomycin . The patient had history of CKD, was on HD in the past.The patient also had worsening renal failure, hypotension, sepsis, so was transferred to [facility] for further evaluation and treatment She had a cardiac arrest with V-tach and asystole with resuscitation and subsequent intubation. Pt was found to have had hyperkalemia, severe metabolic acidosis . The patient underwent dialysis catheter placement, femoral arterial placement and femoral venous catheter placement. The patient is currently on IV vancomycin and aztreonam. ID consultation has been requested for further assistance with antibiotic management. Patient is currently undergoing dialysis, on pressors. PAST MEDICAL HISTORY: Hypertension, low back pain, osteoarthritis, chronic renal insufficiency, was on HD prior, currently off since 2030; history of fall prior to admission, COPD and hyperlipidemia. PAST SURGICAL HISTORY: History of TDC, cholecystectomy and hysterectomy. FAMILY HISTORY: As per HPI. SOCIAL HISTORY: No smoking. Lives with family. No alcohol, no drugs. CURRENT MEDICATIONS: IV vancomycin and aztreonam. Other medications reviewed in medication list. ALLERGIES: PENICILLIN, INTERMEDIATE UNKNOWN REACTION; CHLORPHENIRAMINE CIPROFLOXACIN, CODEINE, PIOGLITAZONE AND RAMIPRIL. REVIEW OF SYSTEMS: Unable to obtain. PHYSICAL EXAMINATION: VITAL SIGNS: Temperature 97.8, pulse 90, respiratory rate 24, blood pressure 147/65 and oxygen saturation 100% on FiO2 of 100%. GENERAL: Intubated and sedated. HEENT: Anicteric, normocephalic. ET tube present. NECK: Supple. Dialysis catheter site looks clean. LUNGS: Bilateral wheezing, coarse breath sounds. HEART: S1, S2 regular. ABDOMEN: Obese, soft, bruises present mainly in the left groin. EXTREMITIES: Bilateral pedal edema, cold, cyanotic lower extremity. Left lower extremity just above the ankle has wound with sutures, periincisional swelling No purulence, ankle swelling noted. unable to feel dorsalis pedis due to edema. CENTRAL NERVOUS SYSTEM: Intubated. PSYCHIATRIC: Unable to assess. LABORATORY DATA: WBC 20.2, hemoglobin 8.0, hematocrit 24.7, platelets 203 and bands 43 on admission. Sodium 142, potassium 4.7, chloride 105, bicarbonate 17, BUN 68, creatinine 4.7, glucose 204 and calcium 7.3. Phosphorus was 17.5, repeat is 9.7. Bilirubin 0.4, AST 2093, ALT 835 and alkaline phosphatase 233. CK 438. Procalcitonin 1.46. Lactate 2.4, repeat is 1.6. UA not available. IMAGING DATA: Chest x-ray, stable suspected bilateral lower lobe interstitial infiltrate or atelectasis. Support lines and tubes present. MICRO: None here. On the outside hospital, wound culture from 10/21, group G strep and MSSA. On 10/18, blood culture methicillin-sensitive Staph epidermidis. IMPRESSION: Patient with multiorgan failure Status post cardiac arrest, V. tach, cardiogenic shock, renal failure, hepatic failure 1. Severe sepsis, appears multifactorial. 2. Status post cardiac arrest 3. Acute hypoxic respiratory failure s/p intubation 4.. Acute kidney injury with underlying chronic kidney disease, on hemodialysis. Hyperkalemia, hyperphosphatemia and severe metabolic acidosis. 5. Leukocytosis, also could have a reactive component. 6. Left lower extremity cellulitis, status post incision and drainage at outside facility with cultures positive for MSSA and group G strep. 7. Rhabdomyolysis. 8. History of fall prior to admission. 9. Abnormal LFTs, likely secondary to shock liver. 10. Anemia. 11. History of methicillin sensitive staph epidermidis bacteremia at outside hospital 12. History of ALLERGIES TO PENICILLIN, UNKNOWN REACTION AND CIPROFLOXACIN. RECOMMENDATIONS: 1. Continue vancomycin and aztreonam. I have asked pharmacy to call [facility] and obtain antibiotic regimen information. Will modify treatment depending on further information. 2. Repeat blood cultures. 3. Follow up labs and cultures. 4. Currently on hemodialysis. 5. Discontinue femoral arterial Line and femoral vein line when possible. 6. Monitor labs and cultures. 7. Continue local wound care as directed. 8. Critically ill. 9. Prognosis appears grim 10. Team has approached family regarding final goals of treatment. 11. Plans are to withdraw care if no improvement in the next 24 hours. Discussed with RN. Discussed with Dr. Leslie. Thank you for allowing me to participate in this patient's care. If you have any questions, do not hesitate to contact me. CCT, 45 minutes. Per pharmacy report patient had been on IV vancomycin and meropenem at outside hospital. I will discontinue IV vancomycin and start patient on daptomycin. History of allergy to penicillin was reported with hives. DC aztreonam. will restart Merrem. BRITNEY/RENETTA DR: Damaris TID: [id number] MTDD
[2020-10-28] MEDS: IV NORMAL SALINE 1000ML BAG 1,000 ML IV SCH (02:20)
[2020-10-28] MEDS ORDERED: VANCOMYCIN RANDOM LEVEL. MC ONE (06:00)
--- NOTE | 2020-10-28 06:04 | NUR ---
At 0400 I began my assessment and used the doppler to attempt to find pedal pulses but was unsuccessful. I attempted for about 15 minutes. Merlyn, RN, Cathryn, RN, and Juliocesar, RN, all attempted to find pulse without success. Patient does have strong popliteal pulses bilaterally, but no pedal or posttibial in left foot. Dr. Trixie dwyer, notified of findings. No new orders at this time--someone will be in today to look into it further. Patients HR in 40s and BP dropping around 0430. Jose Miguel, , notified and asked to come in. He said he would be up as soon as he could. Patient now seems to have stabilized a bit more since 0430, but overall still very unstable.
[2020-10-28] MEDS: HYDROCORTISONE SOD SUCC/PF 100 MG/2 ML VIAL. IVP SCH (06:15)
[2020-10-28] MEDS ORDERED: IV NORMAL SALINE 1000ML BAG 1,000 ML IV PRN (07:30)
[2020-10-28] MEDS ORDERED: DIALYSIS PATIENT. MC PRN ×2 (07:30)
[2020-10-28 07:44] LABS: RED BLOOD COUNT 1.9 x10^6/uL (3.50-5.40); RED CELL DISTRIBUTION WIDTH 14.8 % (11.5-14.5); WHITE BLOOD COUNT 12.1 x10^3/uL (4.0-11.0)
--- NOTE | 2020-10-28 07:45 | NUR ---
At 0650, after shift report was given, both RNs went into the room to review the patient and discuss the case with the patient's , Jose Miguel, at the bedside. Jose Miguel was asking about prognosis, and upon looking at the monitor, patient's heart rhythm had converted to bradycardia, rate in the 40s, with frequent PACs and 2-3 second pauses. Jose Miguel was then notified of the rhythm change and what could happen if it persists. As this was being explained, at 0701, the monitor alarmed asystole with a flat waveform on the arterial sheath. Verified by both RNs at the bedside, notified of time of . Physicians notified.
[2020-10-28 07:49] LABS: HEMATOCRIT 18.7 % (36.0-47.0); HEMOGLOBIN 5.8 g/dL (12.0-15.5)
--- NOTE | 2020-10-28 07:49 | PDOC3 ---
Discharge Summary Visit Information Date of Admission: Oct 26, 2020 Date of Discharge: Oct 28, 2020 Final Diagnosis cardiac arrest acute hypoxic respiratory failure, fluid overload and sepsis, sepsis, septic shock, IV fluid and dopamine given in route, change to levaphed, fluid given sepsis, cellulitis, Vanc,zosyn ordere acute renal failure, vasomotor on CKD 4, consult renal, hx of prior dialysis yearss ago obese, BMI 43 dm2 neuropathy feet, poor sensation acute transaminitis from sepsis Problems Medical Problems: (1) Altered mental state Status: Acute (2) History of cellulitis Status: Acute (3) Multiorgan failure Status: Acute (4) Septic shock Status: Acute Brief Hospital Course Allergies Allergies Coded Allergies Type Severity Reaction Last Updated Verified Penicillins Allergy Intermediate inj site swelling as child 10/27/20 Yes chlorpheniramine Allergy Intermediate AKYLAMINE ANTIHISTAMINE 10/26/20 Yes ciprofloxacin Allergy Intermediate 10/26/20 Yes codeine Allergy Intermediate 10/26/20 Yes pioglitazone Allergy Intermediate 10/26/20 Yes ramipril Allergy Intermediate 10/26/20 Yes Vital Signs Vital Signs Date Time Temp Pulse Resp B/P (MAP) Pulse Ox O2 Delivery O2 Flow Rate FiO2 10/28/20 06:00 52 24 88/26 (46) 87 Ventilator 10/28/20 04:00 98.9 98.9 10/27/20 07:00 15.0 Lab Results Laboratory Tests Test 10/26/20 16:30 10/26/20 18:09 10/26/20 19:51 10/26/20 20:00 White Blood Count 20.2 x10^3/uL (4.0-11.0) Red Blood Count 2.80 x10^6/uL (3.50-5.40) Hemoglobin 8.5 g/dL (12.0-15.5) Hematocrit 26.7 % (36.0-47.0) Mean Corpuscular Volume 96 fL (79-100) Mean Corpuscular Hemoglobin 31 pg (25-35) Mean Corpuscular Hemoglobin Concent 32 g/dL (31-37) Red Cell Distribution Width 14.2 % (11.5-14.5) Platelet Count 270 x10^3/uL (140-400) Neutrophils (%) (Auto) 92 % (31-73) Lymphocytes (%) (Auto) 3 % (24-48) Monocytes (%) (Auto) 3 % (0-9) Eosinophils (%) (Auto) 1 % (0-3) Basophils (%) (Auto) 1 % (0-3) Neutrophils # (Auto) 18.7 x10^3/uL (1.8-7.7) Lymphocytes # (Auto) 0.5 x10^3/uL (1.0-4.8) Monocytes # (Auto) 0.7 x10^3/uL (0.0-1.1) Eosinophils # (Auto) 0.2 x10^3/uL (0.0-0.7) Basophils # (Auto) 0.1 x10^3/uL (0.0-0.2) Segmented Neutrophils % 46 % (35-66) Band Neutrophils % 43 % (0-9) Lymphocytes % 3 % (24-48) Monocytes % 6 % (0-10) Eosinophils % 1 % (0-5) Metamyelocytes % 1 % (0-0) Platelet Estimate Adequate (ADEQUATE) Poikilocytosis Marked Brissa Cells Many Schistocytes Occ Sodium Level 138 mmol/L (136-145) Potassium Level 5.6 mmol/L (3.5-5.1) Chloride Level 103 mmol/L (98-107) Carbon Dioxide Level 18 mmol/L (21-32) Anion Gap 17 (6-14) Blood Urea Nitrogen 86 mg/dL (7-20) Creatinine 6.5 mg/dL (0.6-1.0) Estimated GFR (Cockcroft-Gault) 6.2 Glucose Level 121 mg/dL (70-99) Lactic Acid Level 2.4 mmol/L (0.4-2.0) 1.6 mmol/L (0.4-2.0) Calcium Level 7.3 mg/dL (8.5-10.1) Total Bilirubin 0.3 mg/dL (0.2-1.0) Direct Bilirubin 0.1 mg/dL (0.0-0.2) Aspartate Amino Transf (AST/SGOT) 407 U/L (15-37) Alanine Aminotransferase (ALT/SGPT) 229 U/L (14-59) Alkaline Phosphatase 175 U/L (46-116) Troponin I Quantitative 0.061 ng/mL (0.000-0.055) Total Protein 5.3 g/dL (6.4-8.2) Albumin 1.7 g/dL (3.4-5.0) Procalcitonin 1.46 ng/mL (0.00-0.10) Bedside Venous pH 7.07 (7.32-7.42) Bedside Venous pCO2 49 mmHg (41-51) Bedside Venous pO2 226 mmHg (20-40) Venous Blood HCO3 14 mmol/L (24-28) POC Venous O2 Saturation (Thierno) 99 % Bedside FiO2 21.0 Creatine Kinase 438 U/L (26-192) O2 Saturation 95 % (92-99) Arterial Blood pH 7.08 (7.35-7.45) Arterial Blood pCO2 at Patient Temp 36 mmHg (35-46) Arterial Blood pO2 at Patient Temp 94 mmHg (65-108) Arterial Blood HCO3 11 mmol/L (21-28) Arterial Blood Base Excess -18 mmol/L (-3-3) FiO2 40% venti mask Test 10/27/20 05:19 10/27/20 07:25 10/27/20 07:32 10/27/20 08:20 Glucose (Fingerstick) 176 mg/dL (70-99) 173 mg/dL (70-99) O2 Saturation 99 % (92-99) Arterial Blood pH 6.98 (7.35-7.45) Arterial Blood pCO2 at Patient Temp 37 mmHg (35-46) Arterial Blood pO2 at Patient Temp 311 mmHg (65-108) Arterial Blood HCO3 9 mmol/L (21-28) Arterial Blood Base Excess -22 mmol/L (-3-3) Oxyhemoglobin 98.4 % Methemoglobin 0.6 % (0.0-1.9) Carbon Monoxide, Quantitative 0.3 % (0.0-1.9) FiO2 100/vent White Blood Count 12.8 x10^3/uL (4.0-11.0) Red Blood Count 2.24 x10^6/uL (3.50-5.40) Hemoglobin 6.7 g/dL (12.0-15.5) Hematocrit 24.5 % (36.0-47.0) Mean Corpuscular Volume 107 fL (79-100) Mean Corpuscular Hemoglobin 30 pg (25-35) Mean Corpuscular Hemoglobin Concent 27 g/dL (31-37) Red Cell Distribution Width 15.5 % (11.5-14.5) Platelet Count 172 x10^3/uL (140-400) Neutrophils (%) (Auto) 82 % (31-73) Lymphocytes (%) (Auto) 12 % (24-48) Monocytes (%) (Auto) 6 % (0-9) Eosinophils (%) (Auto) 0 % (0-3) Basophils (%) (Auto) 0 % (0-3) Neutrophils # (Auto) 10.5 x10^3/uL (1.8-7.7) Lymphocytes # (Auto) 1.6 x10^3/uL (1.0-4.8) Monocytes # (Auto) 0.7 x10^3/uL (0.0-1.1) Eosinophils # (Auto) 0.0 x10^3/uL (0.0-0.7) Basophils # (Auto) 0.0 x10^3/uL (0.0-0.2) Sodium Level 142 mmol/L (136-145) Potassium Level 6.1 mmol/L (3.5-5.1) Chloride Level 105 mmol/L (98-107) Carbon Dioxide Level 15 mmol/L (21-32) Anion Gap 22 (6-14) Blood Urea Nitrogen 92 mg/dL (7-20) Creatinine 6.5 mg/dL (0.6-1.0) Estimated GFR (Cockcroft-Gault) 6.2 BUN/Creatinine Ratio 14 (6-20) Glucose Level 292 mg/dL (70-99) Calcium Level 8.4 mg/dL (8.5-10.1) Phosphorus Level 17.5 mg/dL (2.6-4.7) Magnesium Level 3.6 mg/dL (1.8-2.4) Total Bilirubin 0.3 mg/dL (0.2-1.0) Aspartate Amino Transf (AST/SGOT) 1088 U/L (15-37) Alanine Aminotransferase (ALT/SGPT) 489 U/L (14-59) Alkaline Phosphatase 180 U/L (46-116) Total Protein 3.7 g/dL (6.4-8.2) Albumin 1.3 g/dL (3.4-5.0) Albumin/Globulin Ratio 0.5 (1.0-1.7) Test 10/27/20 10:10 10/27/20 15:13 White Blood Count 10.0 x10^3/uL (4.0-11.0) Red Blood Count 2.63 x10^6/uL (3.50-5.40) Hemoglobin 8.0 g/dL (12.0-15.5) Hematocrit 24.7 % (36.0-47.0) Mean Corpuscular Volume 94 fL (79-100) Mean Corpuscular Hemoglobin 30 pg (25-35) Mean Corpuscular Hemoglobin Concent 32 g/dL (31-37) Red Cell Distribution Width 14.0 % (11.5-14.5) Platelet Count 203 x10^3/uL (140-400) Neutrophils (%) (Auto) 89 % (31-73) Lymphocytes (%) (Auto) 8 % (24-48) Monocytes (%) (Auto) 1 % (0-9) Eosinophils (%) (Auto) 1 % (0-3) Basophils (%) (Auto) 1 % (0-3) Neutrophils # (Auto) 8.9 x10^3/uL (1.8-7.7) Lymphocytes # (Auto) 0.8 x10^3/uL (1.0-4.8) Monocytes # (Auto) 0.1 x10^3/uL (0.0-1.1) Eosinophils # (Auto) 0.1 x10^3/uL (0.0-0.7) Basophils # (Auto) 0.1 x10^3/uL (0.0-0.2) Sodium Level 142 mmol/L (136-145) Potassium Level 4.7 mmol/L (3.5-5.1) Chloride Level 105 mmol/L (98-107) Carbon Dioxide Level 17 mmol/L (21-32) Anion Gap 20 (6-14) Blood Urea Nitrogen 68 mg/dL (7-20) Creatinine 4.7 mg/dL (0.6-1.0) Estimated GFR (Cockcroft-Gault) 9.1 BUN/Creatinine Ratio 14 (6-20) Glucose Level 204 mg/dL (70-99) Calcium Level 7.3 mg/dL (8.5-10.1) Phosphorus Level 9.7 mg/dL (2.6-4.7) Magnesium Level 2.6 mg/dL (1.8-2.4) Total Bilirubin 0.4 mg/dL (0.2-1.0) Aspartate Amino Transf (AST/SGOT) 2093 U/L (15-37) Alanine Aminotransferase (ALT/SGPT) 835 U/L (14-59) Alkaline Phosphatase 233 U/L (46-116) Total Protein 4.6 g/dL (6.4-8.2) Albumin 1.4 g/dL (3.4-5.0) Albumin/Globulin Ratio 0.4 (1.0-1.7) Hepatitis B Surface Antigen Nonreactive (Nonreactive) Hepatitis B Surface Antibody Nonreactive O2 Saturation 93 % (92-99) Arterial Blood pH 7.33 (7.35-7.45) Arterial Blood pCO2 at Patient Temp 36 mmHg (35-46) Arterial Blood pO2 at Patient Temp 77 mmHg (65-108) Arterial Blood HCO3 19 mmol/L (21-28) Arterial Blood Base Excess -7 mmol/L (-3-3) FiO2 40/vent Laboratory Tests Test 10/27/20 08:20 10/27/20 10:10 10/27/20 15:13 White Blood Count 12.8 x10^3/uL (4.0-11.0) 10.0 x10^3/uL (4.0-11.0) Red Blood Count 2.24 x10^6/uL (3.50-5.40) 2.63 x10^6/uL (3.50-5.40) Hemoglobin 6.7 g/dL (12.0-15.5) 8.0 g/dL (12.0-15.5) Hematocrit 24.5 % (36.0-47.0) 24.7 % (36.0-47.0) Mean Corpuscular Volume 107 fL (79-100) 94 fL (79-100) Mean Corpuscular Hemoglobin 30 pg (25-35) 30 pg (25-35) Mean Corpuscular Hemoglobin Concent 27 g/dL (31-37) 32 g/dL (31-37) Red Cell Distribution Width 15.5 % (11.5-14.5) 14.0 % (11.5-14.5) Platelet Count 172 x10^3/uL (140-400) 203 x10^3/uL (140-400) Neutrophils (%) (Auto) 82 % (31-73) 89 % (31-73) Lymphocytes (%) (Auto) 12 % (24-48) 8 % (24-48) Monocytes (%) (Auto) 6 % (0-9) 1 % (0-9) Eosinophils (%) (Auto) 0 % (0-3) 1 % (0-3) Basophils (%) (Auto) 0 % (0-3) 1 % (0-3) Neutrophils # (Auto) 10.5 x10^3/uL (1.8-7.7) 8.9 x10^3/uL (1.8-7.7) Lymphocytes # (Auto) 1.6 x10^3/uL (1.0-4.8) 0.8 x10^3/uL (1.0-4.8) Monocytes # (Auto) 0.7 x10^3/uL (0.0-1.1) 0.1 x10^3/uL (0.0-1.1) Eosinophils # (Auto) 0.0 x10^3/uL (0.0-0.7) 0.1 x10^3/uL (0.0-0.7) Basophils # (Auto) 0.0 x10^3/uL (0.0-0.2) 0.1 x10^3/uL (0.0-0.2) Sodium Level 142 mmol/L (136-145) 142 mmol/L (136-145) Potassium Level 6.1 mmol/L (3.5-5.1) 4.7 mmol/L (3.5-5.1) Chloride Level 105 mmol/L (98-107) 105 mmol/L (98-107) Carbon Dioxide Level 15 mmol/L (21-32) 17 mmol/L (21-32) Anion Gap 22 (6-14) 20 (6-14) Blood Urea Nitrogen 92 mg/dL (7-20) 68 mg/dL (7-20) Creatinine 6.5 mg/dL (0.6-1.0) 4.7 mg/dL (0.6-1.0) Estimated GFR (Cockcroft-Gault) 6.2 9.1 BUN/Creatinine Ratio 14 (6-20) 14 (6-20) Glucose Level 292 mg/dL (70-99) 204 mg/dL (70-99) Calcium Level 8.4 mg/dL (8.5-10.1) 7.3 mg/dL (8.5-10.1) Phosphorus Level 17.5 mg/dL (2.6-4.7) 9.7 mg/dL (2.6-4.7) Magnesium Level 3.6 mg/dL (1.8-2.4) 2.6 mg/dL (1.8-2.4) Total Bilirubin 0.3 mg/dL (0.2-1.0) 0.4 mg/dL (0.2-1.0) Aspartate Amino Transf (AST/SGOT) 1088 U/L (15-37) 2093 U/L (15-37) Alanine Aminotransferase (ALT/SGPT) 489 U/L (14-59) 835 U/L (14-59) Alkaline Phosphatase 180 U/L (46-116) 233 U/L (46-116) Total Protein 3.7 g/dL (6.4-8.2) 4.6 g/dL (6.4-8.2) Albumin 1.3 g/dL (3.4-5.0) 1.4 g/dL (3.4-5.0) Albumin/Globulin Ratio 0.5 (1.0-1.7) 0.4 (1.0-1.7) Hepatitis B Surface Antigen Nonreactive (Nonreactive) Hepatitis B Surface Antibody Nonreactive O2 Saturation 93 % (92-99) Arterial Blood pH 7.33 (7.35-7.45) Arterial Blood pCO2 at Patient Temp 36 mmHg (35-46) Arterial Blood pO2 at Patient Temp 77 mmHg (65-108) Arterial Blood HCO3 19 mmol/L (21-28) Arterial Blood Base Excess -7 mmol/L (-3-3) FiO2 40/vent Brief Hospital Course Ms. Mae is a 75 old female that was transferred here from [facility] after there for 8 days. She had a leg wound for 2 weeks before seeking care, and had I+D surgery there no 10/25, Dr. Baig accepted for worsening renal failure, and I believe he was unaware of sepsis status. En route here, he was called by EMS for hypotension and shock, fluid bolus and Dopamine started, and diverted to ER here. Then more fluid and levophed started, noted severe sepsis and shock , unresponsive in ER, she did get better there, with fluid and change in abx, then CARDIAC arrest 10/27, at 7:10, asystole, CPR done, intubated, mult shocks, then return of spont circ. started on CRRT, lines done, Pulm, CV, ID following Her made her DNR, and she 10/28 7:01 Discharge Information Condition at Discharge: / Scheduled Aspirin (Aspirin) 81 Mg Tab.chew, 1 TAB PO DAILY for blood thinner, #90 Ref 3 (Reported) Entered as Reported by: HADLEY MERLOS on 10/26/202355 Last Taken: Unknown Dose on 10/25/20 Last Action: New Order on 10/26/202355 by HADLEY MERLOS Atorvastatin Calcium (Atorvastatin Calcium) 80 Mg Tablet, 1 TAB PO HS for hyperlipidemia, (Reported) Entered as Reported by: HADLEY MERLOS on 10/26/202355 Last Taken: Unknown Dose on 10/25/20 Last Action: New Order on 10/26/202355 by HADLEY MERLOS Dulaglutide (Trulicity) 1.5 Mg/0.5 Ml Pen.injctr, 0.5 ML SQ WEEKLY for diabetes, (Reported) Entered as Reported by: HADLEY MERLOS on 10/26/202355 Last Taken: Unknown Dose on Unknown Date & Time Last Action: New Order on 10/26/202355 by HADLEY MERLOS Febuxostat (Febuxostat) 40 Mg Tablet, 1 TAB PO DAILY for uric acid personal financial representative, (Reported) Entered as Reported by: HADLEY MERLOS on 10/26/202355 Last Taken: Unknown Dose on 10/25/20 Last Action: New Order on 10/26/202355 by HADLEY MERLOS Flaxseed Oil (Flax Oil) 1,000 Mg Capsule, 1 CAP PO BID for heart health for 30 Days, #60 Ref 0 (Reported) Entered as Reported by: HADLEY MERLOS on 10/27/202 Last Taken: Unknown Dose on Unknown Date & Time Last Action: New Order on 10/27/202 by HADLEY MERLOS Folic Acid (Folic Acid) 0.8 Mg Tablet, 1 MG PO DAILY for SUPPLEMENT, (Reported) Entered as Reported by: HADLEY MERLOS on 10/26/202355 Last Taken: Unknown Dose on 10/25/20 Last Action: New Order on 10/26/202355 by HADLEY MERLOS Hydroxychloroquine Sulfate (Hydroxychloroquine Sulfate) 200 Mg Tablet, 1 TAB PO BID for arthritis, (Reported) Entered as Reported by: HADLEY MERLOS on 10/27/202 Last Taken: Unknown Dose on Unknown Date & Time Last Action: New Order on 10/27/202 by HADLEY MERLOS Icosapent Ethyl (Vascepa) 1 Gm Capsule, 2 CAP PO BID for hyperlipidemia, (Reported) Entered as Reported by: HADLEY MERLOS on 10/26/202355 Last Taken: Unknown Dose on 10/25/20 Last Action: New Order on 10/26/202355 by HADLEY MERLOS Insulin Glargine,Hum.rec.anlog (Lantus Solostar) 100 Unit/1 Ml Insuln.pen, 20 UNIT SQ HS for diabetes, (Reported) Entered as Reported by: HADLEY MERLOS on 10/26/202355 Last Taken: Unknown Dose on 10/25/20 Last Action: New Order on 10/26/202355 by HADLEY MERLOS Insulin Glargine,Hum.rec.anlog (Lantus Solostar) 100 Unit/1 Ml Insuln.pen, 20 UNIT SQ QHS for diabetes, #15 Ref 5 (Reported) Entered as Reported by: HADLEY MERLOS on 10/26/202355 Last Taken: Unknown Dose on 10/25/20 Last Action: New Order on 10/26/202355 by HADLEY MERLOS Lutein/Zeaxanthin (Ocuvite Lutein 25-5 mg Softgel) 1 Each Capsule, 1 CAP PO DAILY for eye health for 30 Days, #30 Ref 0 (Reported) Entered as Reported by: HADLEY MERLOS on 10/27/202 Last Taken: Unknown Dose on 10/25/20 Last Action: New Order on 10/27/202 by HADLEY MERLOS Propranolol Hcl (Propranolol Hcl) 10 Mg Tablet, 2 TAB PO BID for HTN, (Reported) Entered as Reported by: HADLEY MERLOS on 10/27/202 Last Taken: Unknown Dose on Unknown Date & Time Last Action: New Order on 10/27/202 by HADLEY MERLOS Sitagliptin Phosphate (Januvia) 100 Mg Tablet, 1 TAB PO DAILY for diabetes, (Reported) Entered as Reported by: HADLEY MERLOS on 10/26/202355 Last Taken: Unknown Dose on Unknown Date & Time Last Action: New Order on 10/26/202355 by HADLEY MERLOS Thyroid,Pork ([place] Thyroid) 60 Mg Tablet, 1 TAB PO DAILY06 for hypothyroidism, (Reported) Entered as Reported by: HADLEY MERLOS on 10/26/202355 Last Taken: Unknown Dose on Unknown Date & Time Last Action: New Order on 10/26/202355 by HADLEY MERLOS Scheduled PRN Albuterol Sulfate (Albuterol Sulfate Neb Soln) 2.5 Mg/3 Ml Vial.neb, 1 VIAL NEB PRN Q4HRS PRN for SHORTNESS OF BREATH, (Reported) Entered as Reported by: HADLEY MERLOS on 10/26/202355 Last Taken: Unknown Dose on Unknown Date & Time Last Action: New Order on 10/26/202355 by HADLEY MERLOS Bisacodyl (Dulcolax) 5 Mg Tablet.dr, 1 TAB PO PRN DAILY PRN for CONSTIPATION for 1 Days, #2 Ref 0 (Reported) Entered as Reported by: HADLEY MERLOS on 10/27/202 Last Taken: Unknown Dose on Unknown Date & Time Last Action: New Order on 10/27/202 by HADLEY MERLOS Docusate Sodium (Colace) 100 Mg Capsule, 100 MG PO PRN DAILY PRN for CONSTIPATION, (Reported) Entered as Reported by: HADLEY MERLOS on 10/27/202 Last Taken: Unknown Dose on Unknown Date & Time Last Action: New Order on 10/27/202 by HADLEY MERLOS Nystatin (Nystatin) 15 Gm Powder, 1 HUY TP PRN BID PRN for RASH, (Reported) Entered as Reported by: HADLEY MERLOS on 10/27/202 Last Taken: Unknown Dose on Unknown Date & Time Last Action: New Order on 10/27/202 by HADLEY MERLOS Patient Instructions Patient Instructions discussed with Justicifation of Admission Dx: Justifications for Admission: Justification of Admission Dx: Yes ISHAN ADLER MD Oct 28, 2020 07:49
[2020-10-28 08:25] LABS: ALBUMIN 1.6 g/dL (3.4-5.0); ALBUMIN/GLOBULIN RATIO 0.8 (1.0-1.7); CALCIUM 6.4 mg/dL (8.5-10.1); CREATININE 4.1 mg/dL (0.6-1.0); GFR 10.6; MAGNESIUM 2.4 mg/dL (1.8-2.4); TOTAL BILIRUBIN 1.2 mg/dL (0.2-1.0); TOTAL PROTEIN 3.6 g/dL (6.4-8.2)
[2020-10-28 08:32] LABS: POTASSIUM 6.5 mmol/L (3.5-5.1)
[2020-10-28] MEDS ORDERED: PANTOPRAZOLE IV PUSH 40 MG VIAL. IVP SCH (09:00)
--- NOTE | 2020-10-28 16:36 | RAD ---
10/27/2020 PROCEDURE: 1. Ultrasound-guided placement right internal jugular triple-lumen central venous catheter 2. Ultrasound-guided placement of right internal jugular temporary dialysis catheter 3. Ultrasound-guided placement of a right common femoral arterial line 4. Ultrasound-guided placement of a right common femoral venous sheath Clinical Indication: Post code, no venous access. Need for multiple IV infusions, renal failure with impending dialysis, needs venous access for temporary pacemaking device. Discussion: The risks and benefits of the procedure were discussed the patient and/or their independent sales representative. Informed consent was obtained. A timeout procedure was performed. All elements of maximal sterile barrier technique including the use of a cap, mask, sterile gown, sterile gloves, large sterile sheet, appropriate hand hygiene, and 2% chlorhexidine for cutaneous antisepsis (or acceptable alternative antiseptic per current guidelines) were followed for this procedure. The patient was prepped and draped in the usual sterile fashion. A timeout procedure was performed. The right neck and groin were prepped and draped using sterile barrier technique as described. Ultrasound interrogation of the right neck revealed patency and compressibility of the right internal jugular vein. A 21-gauge micropuncture was then used to gain access to this vein under ultrasound guidance. A hard copy ultrasound image was recorded. A guidewire was advanced centrally. 5 Slovak sheath was placed. Over a wire following dilatation, a triple-lumen central venous catheter was advanced centrally. This procedure was performed in an essentially identical fashion the more cephalad right internal jugular vein, through separate access, with the exception that a temporary dialysis catheter was placed. Both catheters were found to flush and aspirate normally. Follow-up chest radiograph demonstrates both catheters to be in acceptable position. Catheters were secured in place. Sterile dressings were applied. No immediate complications were identified. Ultrasound evaluation demonstrates the right common femoral artery be patent. The artery was accessed under direct ultrasound guidance using a micropuncture technique. Reference ultrasound images were saved the medical record. A 4 Slovak vascular sheath was placed to serve as an arterial line for hemodynamic monitoring. Sheath was secured in place. Ultrasound evaluation demonstrates the right common femoral vein to be patent and compressible. The vein was accessed under direct ultrasound guidance using micropuncture technique. Reference ultrasound images were saved medical record. A 5 Slovak sheath was placed in the right common femoral vein, to service venous access as well as access for a impending temporary pacemaking device per conversation with cardiology. Sheath was secured in place. Sterile dressings were applied. Impression: 1. Ultrasound-guided placement right internal jugular triple-lumen central venous catheter 2. Ultrasound-guided placement of right internal jugular temporary dialysis catheter 3. Ultrasound-guided placement of a right common femoral arterial line 4. Ultrasound-guided placement of a right common femoral venous sheath
== END 2020-10-28 07:01 | DRG 871 ==
LOC: ER 16:17 → 1 WEST ICU 17:15
PROVIDERS: ADMIT Internal Medicine; ATTEND Internal Medicine
PROC: 5A12012 Performance of Cardiac Output, Single, Manual (ICD-10-PCS; principal; 2020-10-27)
PROC: 02HV33Z Insertion of Infusion Device into Superior Vena Cava, Percutaneous Approach (ICD-10-PCS; 2020-10-27)
PROC: B548ZZA Ultrasonography of Superior Vena Cava, Guidance (ICD-10-PCS; 2020-10-27)
PROC: 04HK33Z Insertion of Infusion Device into Right Femoral Artery, Percutaneous Approach (ICD-10-PCS; 2020-10-27)
PROC: 02HV33Z Insertion of Infusion Device into Superior Vena Cava, Percutaneous Approach (ICD-10-PCS; 2020-10-27)
PROC: B548ZZA Ultrasonography of Superior Vena Cava, Guidance (ICD-10-PCS; 2020-10-27)
PROC: 5A1D70Z Performance of Urinary Filtration, Intermittent, Less than 6 Hours Per Day (ICD-10-PCS; 2020-10-27)
PROC: 5A1935Z Respiratory Ventilation, Less than 24 Consecutive Hours (ICD-10-PCS; 2020-10-27)
PROC: 0BH17EZ Insertion of Endotracheal Airway into Trachea, Via Natural or Artificial Opening (ICD-10-PCS; 2020-10-27)
PROC: 5A1D70Z Performance of Urinary Filtration, Intermittent, Less than 6 Hours Per Day (ICD-10-PCS; 2020-10-28)
DX: A41.9 Sepsis, unspecified organism (principal); N17.0 Acute kidney failure with tubular necrosis; J96.01 Acute respiratory failure with hypoxia; K72.00 Acute and subacute hepatic failure without coma; R65.21 Severe sepsis with septic shock; I47.2 Ventricular tachycardia; L03.116 Cellulitis of left lower limb; M62.82 Rhabdomyolysis; N18.4 Chronic kidney disease, stage 4 (severe); Z68.41 Body mass index [BMI] 40.0-44.9, adult; E87.2 Acidosis; D64.9 Anemia, unspecified; E03.9 Hypothyroidism, unspecified; E11.22 Type 2 diabetes mellitus with diabetic chronic kidney disease; E78.5 Hyperlipidemia, unspecified; E83.39 Other disorders of phosphorus metabolism; E87.5 Hyperkalemia; E87.70 Fluid overload, unspecified; F17.210 Nicotine dependence, cigarettes, uncomplicated; E11.42 Type 2 diabetes mellitus with diabetic polyneuropathy; I12.9 Hypertensive chronic kidney disease with stage 1 through stage 4 chronic kidney disease, or unspecified chronic kidney disease; I46.9 Cardiac arrest, cause unspecified; J44.9 Chronic obstructive pulmonary disease, unspecified; M19.90 Unspecified osteoarthritis, unspecified site; Z66 Do not resuscitate; E05.90 Thyrotoxicosis, unspecified without thyrotoxic crisis or storm; E66.01 Morbid (severe) obesity due to excess calories; R57.0 Cardiogenic shock; M54.5 Low back pain; R94.5 Abnormal results of liver function studies; B95.61 Methicillin susceptible Staphylococcus aureus infection as the cause of diseases classified elsewhere; B95.1 Streptococcus, group B, as the cause of diseases classified elsewhere; Z79.4 Long term (current) use of insulin; Z79.82 Long term (current) use of aspirin; Z79.899 Other long term (current) drug therapy; Z82.49 Family history of ischemic heart disease and other diseases of the circulatory system; Z83.3 Family history of diabetes mellitus; Z88.0 Allergy status to penicillin; Z90.710 Acquired absence of both cervix and uterus; Z99.2 Dependence on renal dialysis; Z88.1 Allergy status to other antibiotic agents; Z88.5 Allergy status to narcotic agent; Z88.8 Allergy status to other drugs, medicaments and biological substances; Z90.49 Acquired absence of other specified parts of digestive tract
CPT/HCPCS: 36415; 36556; 36600; 36620; 71045; 76937; 80048; 80053; 80076; 82550; 82803; 82805; 82962; 83605; 83735; 84100; 84145; 84484; 85007; 85025; 85027; 86706; 87040; 87340; 93005; 93308; 96361; 96365; 96366; 99291; C1892; C1894; J0171; J0282; J0461; J0878; J1644; J1720; J1815; J2185; J2250; J3010; J3370; J3475; J3490; J7030; J7040; J7060; P9046; G0378